=== PATIENT | female | born 1955 | race Caucasian/White ===

== ENCOUNTER 2020-02-10 14:17 | Outpatient (CLI) | payer MEDICARE, SELFPAY ==
--- NOTE | ~2020-02-10 | CT_ITS ---
EXAMINATION: CT lung screening DATE: 02/10/2020 14:39 INDICATION: Z87.891 Personal history of nicotine dependence TECHNIQUE: Computed tomography (CT) of the chest was performed without intravenous contrast. Addition al 3D reconstructions utilizing coronal maximum intensity projection (MIP) were performed. Automated exposure control and iterative reconstruction technique were employed. The dose-length product was 61 .96 mGy-cm. COMPARISON: 10/20/2018 FINDINGS: Severe emphysema. Minimal biapical pleural-parenchymal scarring. There are a few tiny nodules in the bilateral upper lobes the largest measuring 2-3 mm in the left upper lobe without interval change. No pneumonia, pulmonary edema, pleural effusion or pneumothorax. Heart size is normal. Atherosclerotic coronary artery calcification. No pericardial effusion. Thoracic aorta is normal in caliber. No patho logically enlarged thoracic lymphadenopathy. Cholecystectomy clips in the gallbladder fossa. Mild tho racic spondylosis. IMPRESSION: 1. Lung-RADS category 2: Benign appearance or behavior. Continue annual screening with noncontrast lo w-dose chest CT in 12 months. 2. Severe emphysema. Reviewed, dictated and finalized at location A. IMPRESSION: 1. Lung-RADS category 2: Benign appearance or behavior. Continue annual screeni ng with noncontrast low-dose chest CT in 12 months. 2. Severe emphysema.
== END 2020-02-10 14:18 | disposition home or self-care (01) ==
LOC: ANHIMG 14:19
PROVIDERS: PCP Internal Medicine; Visit Provider Nurse Practitioner
DX: Z12.2 Encounter for screening for malignant neoplasm of respiratory organs (principal); Z87.891 Personal history of nicotine dependence; J43.9 Emphysema, unspecified
CPT/HCPCS: G0297

== ENCOUNTER → 2020-08-28 13:58 | Outpatient (CLI) | payer MEDICARE, SELFPAY ==
--- NOTE | ~2020-08-28 | MM_ITS ---
EXAMINATION: MM screening riana BI w kevin HISTORY: Screening mammogram TECHNIQUE: Craniocaudal and mediolateral oblique 3-D tomosynthesis images were obtained and synthetic 2-D images were generated. CAD analysis was submitted and interpreted. COMPARISON: 06/30/2019, 04/16/2018, 04/08/2017 bilateral digital screening mammogram examinations BREAST PARENCHYMAL COMPOSITION: There are scattered areas of fibroglandular density. FINDINGS: There is no evidence of suspicious mass, calcification, or architectural distortion to sugg est malignancy in either breast. There has been no suspicious interval change. IMPRESSION: 1. No mammographic evidence of malignancy. 2. Recommend routine screening mammography in one year. BI-RADS Category 1: Negative Reviewed, dictated and finalized at location A. EW NURSE
== END ==
PROVIDERS: PCP Internal Medicine; Visit Provider Internal Medicine
DX: Z12.31 Encounter for screening mammogram for malignant neoplasm of breast (principal)
CPT/HCPCS: 77063; 77067

== ENCOUNTER → 2021-11-19 13:47 | Outpatient (CLI) | payer MEDICARE, SELFPAY ==
--- NOTE | ~2021-11-19 | MM_ITS ---
EXAMINATION: MM screening [facility] BI w kevin HISTORY: Screening mammogram TECHNIQUE: Craniocaudal and mediolateral oblique 3-D tomosynthesis images were obtained and synthetic 2-D images were generated. CAD analysis was submitted and interpreted. COMPARISON: 08/28/2020, 06/30/2019, 04/16/2018 BREAST PARENCHYMAL COMPOSITION: There are scattered areas of fibroglandular density. FINDINGS: There is no evidence of suspicious mass, calcification, or architectural distortion to sugg est malignancy in either breast. There has been no suspicious interval change. IMPRESSION: 1. No mammographic evidence of malignancy. 2. Recommend routine screening mammography in one year. BI-RADS Category 1: Negative Reviewed, dictated and finalized at location A.
== END ==
PROVIDERS: PCP Internal Medicine; Visit Provider Internal Medicine
DX: Z12.31 Encounter for screening mammogram for malignant neoplasm of breast (principal)
CPT/HCPCS: 77063; 77067

== ENCOUNTER 2022-02-26 10:50 | Outpatient (CLI) | payer MEDICARE, SELFPAY ==
--- NOTE | ~2022-02-26 | US_ITS ---
EXAMINATION: US carotid duplex BI DATE: 02/26/2022 11:40 INDICATION: Carotid bruit TECHNIQUE: Grayscale, color Doppler, and pulsed Doppler images of the cervical carotid arteries were obtained. The degree of vessel stenosis is placed in one of the following categories: normal, <50%, 5 0-69%, >=70% but less than near-occlusion, near-occlusion, or total occlusion. Note that percent sten osis relative to normal distal artery lumen diameter is indirectly measured from velocity measurement s as described by Adrian, et al. Radiology 2003; 229:340-346. COMPARISON: None. FINDINGS: RIGHT: The right common carotid artery (CCA) peak systolic velocity (PSV) is 87 cm/s. The right internal car otid artery (ICA) PSV is 114 cm/s. The right ICA end-diastolic velocity (EDV) is 12 cm/s. The right I CA/CCA PSV ratio is 1.3. Grayscale and color Doppler images yield an estimate of <50% diameter reduct ion from plaque in the ICA. The external carotid artery (ECA) PSV is 129 cm/s. There is antegrade sterling w in the right vertebral artery. LEFT: The left CCA PSV is 88 cm/s. The left ICA PSV is 72 cm/s. The left ICA EDV is 20 cm/s. The left ICA/C CA PSV ratio is 0.8. Grayscale and color Doppler images yield an estimate of <50% diameter reduction from plaque in the ICA. The ECA PSV is 109 cm/s. There is antegrade flow in the left vertebral artery . IMPRESSION: 1. <50% stenosis in the right internal carotid artery. 2. <50% stenosis in the left internal carotid artery. Reviewed, dictated and finalized at location B.
== END 2022-02-26 10:51 | disposition home or self-care (01) ==
PROVIDERS: PCP Internal Medicine; Visit Provider Internal Medicine
DX: R09.89 Other specified symptoms and signs involving the circulatory and respiratory systems (principal); I65.23 Occlusion and stenosis of bilateral carotid arteries
CPT/HCPCS: 93880

== ENCOUNTER 2022-07-20 16:23 | Emergency (ER) | payer MEDICARE, SELFPAY ==
[2022-07-20 16:39] VITALS: BP 117/54; PULSE 85; RESP 16; TEMP 35.9; O2SAT 94
--- NOTE | 2022-07-20 16:52 | ED.URI ---
HPI - URI/Sore Throat General Chief Complaint: Upper Respiratory Infection Stated Complaint: Coughing Time Seen by Provider: 07/20/22 16:52 Source: patient Mode of arrival: ambulatory Limitations: no limitations History of Present Illness HPI Narrative: 66-year-old female with history of COPD presents with complaint of cough, sinus congestion, postnasal drainage for 6 days. Call PCP on 2nd day of symptoms and requested antibiotic he called in. Has been taking cefdinir. Also taking [id number] DayQuil NyQuil cold and flu with little relief of cough. Reports that she has a lot drainage. Has to attend tomorrow and cannot stop coughing. denies shortness of breath and chest pain. Patient is current everyday smoker. All systems reviewed and negative except as noted above. Related Data Home Medications Medication Instructions Recorded Confirmed cefdinir 300 mg capsule 300 mg PO BID 07/20/22 07/20/22 Allergies Allergy/AdvReac Type Severity Reaction Status Date / Time azithromycin Allergy Unknown unsure Verified 07/20/22 16:29 cat dander Allergy Unknown rash Verified 07/20/22 16:29 ketorolac Allergy Unknown Hallucinati Verified 07/20/22 16:29 ng mold Allergy Unknown shortness Verified 07/20/22 16:29 of breath pantoprazole Allergy Unknown Unknown Verified 07/20/22 16:29 Sulfa (Sulfonamide Allergy Unknown Hives Verified 07/20/22 16:29 Antibiotics) Review of Systems Review of Systems: CONSTITUTIONAL: Denies fever, chills, or sweats. EYES: Denies visual changes, redness, or discharge. ENT: Reports rhinorrhea, congestion. Denies sore throat, or otalgia. CARDIOVASCULAR: Denies chest pain, palpitations, or edema. RESPIRATORY: reports cough. Denies dyspnea. GASTROINTESTINAL: Denies abdominal pain, nausea, vomiting, or diarrhea. GENITOURINARY: Denies dysuria or hematuria. SKIN: Denies rash or itching. MUSCULOSKELETAL: Denies back pain, joint pain, or myalgia. NEUROLOGIC: Denies headache, numbness, or weakness. PSYCHIATRIC: Denies anxiety or depression. All other systems reviewed are negative, except as documented in HPI. [facility] Past Medical History Medical History (Updated 07/20/22 @ 17:03 by Mayra Ratliff NP) Impingement syndrome, shoulder, left Family History Family History Sibling Family history of gout Family history of malignant neoplasm Grandparent Family history of tuberculosis Asthma Family history of chronic obstructive pulmonary disease Father Family history of lung cancer Family history of malignant neoplasm Mother Family history of chronic obstructive pulmonary disease Other Family history of congenital heart disease Family history of migraine headaches Social History Social History Smoking packs per day: 1 Smoking cigarettes per day: 20.0 Years smoked: 45 Smoking pack-years: 45.00 Smoking status: Former smoker Tobacco type: cigarettes Second hand tobacco smoke exposure: Yes Smoking end date: 09/08/12 Alcohol intake: former Comments At time of signature, agree with nursing past medical, surgical, social and family history. There is no relevant family history pertinent to the presenting complaint. Exam Narrative: GENERAL: This is a well-nourished, well-developed patient, in no apparent distress. HEAD: normocephalic, atraumatic. EYES: PERRL. Sclera clear/white. Vision is grossly intact. EARS: External ears normal, auditory canals clear and without drainage, TMs normal without perforation. Hearing grossly intact. NOSE: External nose normal with her drainage from both nares, ears erythematous with mild swelling. THROAT: Mucous membranes moist, Mild erythema to posterior pharynx with clear postnasal drainage. NECK: Neck supple, non-tender without lymphadenopathy, masses or thyromegaly. CARDIOVASCULAR: Regular rate and r
== END 2022-07-20 17:14 | disposition home or self-care (01) ==
PROVIDERS: Emergency Provider Nurse Practitioner Family; PCP Internal Medicine
DX: J06.9 Acute upper respiratory infection, unspecified (principal); Z87.891 Personal history of nicotine dependence
CPT/HCPCS: 99213; G0463

== ENCOUNTER 2022-08-28 10:39 | Outpatient (CLI) | payer MEDICARE, SELFPAY ==
--- NOTE | ~2022-08-28 | CT_ITS ---
EXAMINATION: CT lung screening DATE: 08/28/2022 11:12 INDICATION: Personal history nicotine dependence, prior smoker with 45 pack year history TECHNIQUE: Computed tomography (CT) of the chest was performed without intravenous contrast. The dose -length product (DLP) was 65.10 mGy-cm. Automated exposure control and iterative reconstruction techn [employer] were employed. COMPARISON: 02/10/2020 FINDINGS: There is severe emphysema. There are small bilateral waxing and waning pulmonary nodules. A 2 mm nodule of the right upper lobe is not definitely identified on the comparison examination and t he previously described small left upper lobe nodule is no longer evident. The lungs are free of foca l airspace opacities. No pleural effusion or pneumothorax. No pathologically enlarged thoracic lymph nodes are identified. The heart size is normal. There is enlargement of the main and central pulmonar y arteries, consistent with pulmonary hypertension. There is calcified atherosclerosis with moderate stenosis of the proximal abdominal aorta. There is mild thoracic spondylosis. IMPRESSION: 1. Lung-RADS category 2: Benign appearance or behavior. Continue annual screening with noncontrast lo w-dose chest CT in 12 months. Reviewed, dictated and finalized at location F. ORK CONTRACTOR IMPRESSION: 1. Lung-RADS category 2: Benign appearance or behavior. Continue annual screeni ng with noncontrast low-dose chest CT in 12 months.
--- NOTE | ~2022-08-28 | XR_ITS ---
Lumbosacral Spine: AP and lateral views Clinical History: Pain Findings: The normal lordotic curve is maintained. The vertebral bodies and posterior elements are i ntact. There is facet joint degenerative change at L4-L5 and L5-S1. There is mild degenerative disc c hange at these levels. The sacroiliac joints are normally outlined. Impression: Degenerative changes at L4-L5 and L5-S1, as detailed above. Reviewed, dictated and finalized at location . TE[employer] Impression: Degenerative changes at L4-L5 and L5-S1, as detailed above.
== END 2022-08-28 10:40 | disposition home or self-care (01) ==
PROVIDERS: PCP Internal Medicine; Visit Provider Nurse Practitioner
DX: Z12.2 Encounter for screening for malignant neoplasm of respiratory organs (principal); G89.29 Other chronic pain; M54.50 Low back pain, unspecified; Z87.891 Personal history of nicotine dependence
CPT/HCPCS: 71271; 72100

== ENCOUNTER → 2023-02-07 16:04 | Outpatient (CLI) | payer MEDICARE, SELFPAY ==
--- NOTE | ~2023-02-07 | MM_ITS ---
EXAMINATION: MM screening riana BI w kevin HISTORY: Screening mammogram TECHNIQUE: Craniocaudal and mediolateral oblique 3-D tomosynthesis images were obtained and synthetic 2-D images were generated. CAD analysis was submitted and interpreted. COMPARISON: 11/19/2021, 08/28/2020, bilateral screening mammogram examinations BREAST PARENCHYMAL COMPOSITION: There are scattered areas of fibroglandular density. FINDINGS: There is no evidence of suspicious mass, calcification, or architectural distortion to sugg est malignancy in either breast. There has been no suspicious interval change. IMPRESSION: 1. No mammographic evidence of malignancy. 2. Recommend routine screening mammography in one year. BI-RADS Category 1: Negative Reviewed, dictated and finalized at location A.
== END ==
PROVIDERS: PCP Family Medicine; Visit Provider Family Medicine
DX: Z12.31 Encounter for screening mammogram for malignant neoplasm of breast (principal)
CPT/HCPCS: 77063; 77067

== ENCOUNTER → 2023-05-06 10:46 | Outpatient (CLI) | payer MEDICARE, SELFPAY ==
--- NOTE | ~2023-05-06 | DEXA_ITS ---
Bone Density Report Name: URBAN JANSEN Age: 67 Sex: Female Ethnicity: White Date of : 1955 Indication: postmenopausal; screening for osteoporosis; height loss; asthma or emphysema; hysterectomy; Referring Provider: HENRRY LANCASTER Study: Bone densitometry was performed. Exam Date: May 06, 2023 Accession number: [id number] Bone Density: Region BMD T-score Z-score Classification AP Spine (L1-L4) 0.942 -1.0 1.1 Normal Femoral Neck (Left) 0.738 -1.0 0.8 Normal Total Hip (Left) 0.898 -0.4 1.1 Normal Femoral Neck (Right) 0.724 -1.1 0.7 Osteopenia Total Hip (Right) 0.894 -0.4 1.1 Normal Total Hip Mean 0.896 -0.4 1.1 Normal World Health Organization criteria for BMD impression classify patients as: Normal (T-score at or above -1.0), Osteopenia (T-score between -1.0 and -2.5), or Osteoporosis (T-score at or below -2.5). 10-year Fracture Risk(1): Major Osteoporotic Fracture 9.0% Hip Fracture 1.6% Reported Risk Factors: [place] (), Neck BMD=0.724, BMI=27.4, smoking (1) FRAX(R) Version 3.08. Fracture probability calculated for an untreated patient. Fracture probability may be lower if the patient has received treatment. Previous Exams: Region Exam Age BMD T-score BMD Change BMD Change Date g/cm2 vs Baseline vs Previous AP Spine(L1-L4) 05/06/2023 67 0.942 -1.0 -0.065* -0.065* 04/08/2017 61 1.007 -0.4 Total Hip(Left) 05/06/2023 67 0.898 -0.4 -0.035* -0.035* 04/08/2017 61 0.933 -0.1 Total Hip(Right) 05/06/2023 67 0.894 -0.4 -0.030* -0.030* 04/08/2017 61 0.923 -0.2 *Denotes significance at 95% confidence level, LSC for AP Spine = 0.022 g/cm2, LSC for Total Hip = 0.027 g/cm2 Clinical Information Provided by Patient: Smokes Has the following medical conditions: Asthma or Emphysema, Hysterectomy Patient maximum height was 63 Menopause Age: 41 No regular weight bearing exercise Drinks caffeinated beverages Onset of menses at age 8 Number of children 2 Impression: The patient has low bone mass, based on the Right Femoral Neck T-score. The patient has an estimated ten-year risk of hip fracture of 1.6% and an estimated ten-year risk of major fracture of 9%, based on the WHO FRAX algorithm. The patient has risk factors, including: smoking. The BMD for the AP Spine(L1-L4) decreased, changing by -0.065 since the last DXA exam. The BMD for the Total Hip(Left) de
== END ==
PROVIDERS: PCP Nurse Practitioner Family; Visit Provider Nurse Practitioner Family
DX: Z13.820 Encounter for screening for osteoporosis (principal); M85.88 Other specified disorders of bone density and structure, other site
CPT/HCPCS: 77080

== ENCOUNTER 2023-07-28 12:45 | Outpatient (CLI) | payer MEDICARE, SELFPAY ==
--- NOTE | ~2023-07-28 | US_ITS ---
EXAMINATION:US venous doppler LE BI INDICATION:Bilateral leg edema TECHNIQUE: Multiple grayscale, color flow and Doppler images of the right and left lower extremity de ep venous systems were obtained and reviewed. COMPARISON:No prior studies for comparison. FINDINGS: The common femoral, superficial femoral and popliteal veins demonstrate normal respiratory variation, augmentation and compressibility. Color flow is also seen within the posterior tibial, pe roneal, greater saphenous and profunda veins. IMPRESSION: 1: No lower extremity deep venous thrombosis. Reviewed, dictated and finalized at location B. S CONTRACTOR
== END 2023-07-28 12:46 | disposition home or self-care (01) ==
PROVIDERS: PCP Nurse Practitioner Family; Visit Provider Nurse Practitioner Family
DX: I87.2 Venous insufficiency (chronic) (peripheral) (principal); R60.0 Localized edema
CPT/HCPCS: 93970

== ENCOUNTER 2023-08-09 12:36 | Outpatient (CLI) | payer MEDICARE, SELFPAY ==
--- NOTE | 2023-08-09 12:56 | ECHO_ITS ---
Patient Info Name: Selena Ramos Age: 67 years : 1955 Gender: Female Ht: 60 in Wt: 135 lbs BSA: 1.63 m2 HR: 104 bpm BP: 130 / 68 mmHg Heart Rhythm: Sinus Rhythm Technical Quality: Good Exam Date: 08/09/2023 1:06 PM Exam Location: Echo Lab Patient Status: Outpatient Admit Date: 08/09/2023 Staff Ordering Physician: Angeline Steen APRN Die Drawing Checker: Maxi Moise RDCS Attending Provider: Angeline Steen APRN Exam Type: CA echo doppler color flow Study Info Indications - abnormal finding blood chemistery Complete two-dimensional, color flow and Doppler transthoracic echocardiogram is performed. Summary 1. Complete two-dimensional, color flow and Doppler transthoracic echocardiogram is performed. 2. Left ventricular chamber dimension is normal. 3. Left ventricular systolic function is normal, estimated at 60-65%. 4. There is mildly increased left ventricular wall thickness. 5. The left ventricular diastolic function is grade I diastolic dysfunction. 6. There is trace mitral valve regurgitation. 7. There is trace tricuspid valve regurgitation. 8. No pulmonary hypertension, estimated pulmonary arterial systolic pressure is 15 mmHg. 9. There is mild aortic valve sclerosis. 10. There is no aortic valve regurgitation. Left Ventricle Left ventricular chamber dimension is normal. Left ventricular systolic function is normal, estimated at 60-65%. There is mildly increased left ventricular wall thickness. The left ventricular diastolic function is grade I diastolic dysfunction. Right Ventricle Right ventricular chamber dimension is normal. Right ventricular systolic function is normal. Left Atria Left atrial chamber dimension is normal. Right Atria Right atrial chamber dimension is normal. Aortic Valve The aortic valve is probable trileaflet. There is mild aortic valve sclerosis. There is no aortic valve stenosis. There is no aortic valve regurgitation. Pulmonic Valve The pulmonic valve is not well visualized. There is mild pulmonic regurgitation. Mitral Valve The mitral valve has normal leaflets. There is trace mitral valve regurgitation. The mitral valve annulus is mildly calcified. Tricuspid Valve The tricuspid valve leaflets are normal. There is trace tricuspid valve regurgitation. No pulmonary hypertension, estimated pulmonary arterial systolic pressure is 15 mmHg. Pericardium/Pleural The pericardium appears normal. There is small pericardial effusion. Inferior Vena Cava Normal inferior vena cava with >50% collapse upon inspiration consistent with normal right atrial pressure, 5 mmHg. Aorta The aortic root size at the sinus of Valsalva is normal. There is mild aortic atherosclerosis. Left Ventricular Outflow Tract Name Value Normal LVOT 2D LVOT Diameter 1.8 cm LVOT Doppler LVOT Peak Gradient 3 mmHg LVOT Mean Gradient 2 mmHg LVOT VTI 22 cm LVOT VTI/AV VTI Ratio 0.9 LVOT Stroke Volume 54 ml LVOT CO 4.1 l/min LVOT CI 2.5 l/min/m2 Pulmonic V
== END 2023-08-09 12:37 | disposition home or self-care (01) ==
PROVIDERS: PCP Nurse Practitioner Family; Visit Provider Nurse Practitioner Family
DX: R60.0 Localized edema (principal); R79.89 Other specified abnormal findings of blood chemistry
CPT/HCPCS: 93306

== ENCOUNTER 2023-11-20 11:41 | Outpatient (CLI) | payer MEDICARE, SELFPAY ==
--- NOTE | ~2023-11-20 | CT_ITS ---
CT Scan of the Chest without Contrast: Clinical Indication: Lung cancer screening, personal history of nicotine dependence Technique: Contiguous sections were acquired throughout the chest without intravenous contrast. Dose reduction technique was used on this scan by utilizing automated exposure control and iterative recon struction technique. The dose-length product (DLP) was 51.22 mGy-cm. COMPARISON: 08/28/2022 Findings: There is no evidence of any significant mediastinal, hilar or axillary lymphadenopathy. There are ext ensive atherosclerotic calcifications of the aorta. There is no evidence of pleural or pericardial effusion. The lungs are clear. No pulmonary nodules or infiltrates are noted. Moderate to advanced emphysema pr esent. Images through the upper abdomen reveal severe atherosclerotic calcification at the upper abdominal a ravi and iliac aortic hiatus, with possible significant aortic stenosis in this region, stable from p rior exam.. Impression: Lung RADS 1: Negative. 12 month follow-up screening CT advised. Moderate to advanced emphysema. Reviewed, dictated and finalized at location . Impression: Lung RADS 1: Negative. 12 month follow-up screening CT advised. Moderate to advanced emphysema.
== END 2023-11-20 11:42 ==
PROVIDERS: PCP Nurse Practitioner Family; Visit Provider Nurse Practitioner Family
DX: Z12.2 Encounter for screening for malignant neoplasm of respiratory organs (principal); Z87.891 Personal history of nicotine dependence; J43.9 Emphysema, unspecified
CPT/HCPCS: 71271

== ENCOUNTER 2023-12-30 18:30 | Inpatient (IN) | payer MEDICARE, SELFPAY ==
[2023-12-30] VITALS (26 sets, daily range): BP systolic 141–175; BP diastolic 56–142; PULSE 98–123; RESP 15–31; TEMP 35.8–36.7; O2SAT 77–100; BMI 25.2
--- NOTE | ~2023-12-30 | CT_ITS ---
Clinical Indication: Hypoxia, positive d-dimer CT Scan of the Chest with Contrast: Technique: Contiguous sections were acquired throughout the chest after intravenous administration of 100 cc of Omnipaque 350. Dose reduction technique was used on this scan by utilizing automated expos ure control and iterative reconstruction technique. The dose-length product (DLP) was 183.06 mGy-cm. COMPARISON: 11/20/2023 Findings: There is no evidence of any significant mediastinal, hilar or axillary lymphadenopathy. There is no f illing defect in the pulmonary arterial tree to suggest pulmonary embolus. There is no evidence of ao rtic dissection or aneurysm. There is no evidence of pleural or pericardial effusion. Moderate emphysema present. There is patchy consolidation at the right lower lobe. There is focal con solidation peripherally left upper lobe. There is additional focal airspace consolidation in the medi al left upper lobe in the infrahilar region. Images through the upper abdomen reveal no abnormalities . Impression: No evidence of pulmonary embolus, aortic dissection, or aortic aneurysm. New areas of patchy consolidation the right lower lobe and left upper lobe, as detailed above, compat ible with pneumonia. Moderate emphysema. Reviewed, dictated and finalized at location . Impression: No evidence of pulmonary embolus, aortic dissection, or aortic aneurysm. New areas of patchy consolidation the right lower lobe and left upper lobe, as detailed above, compatible with pneumonia. Moderate emphysema.
--- NOTE | ~2023-12-30 | XR_ITS ---
EXAMINATION: XR chest 1V portable Exam Date/Time: 12/30/2023 18:55 CDT HISTORY: shortness of breath Comparison: 08/05/2016, report only. RESULT: Lines, tubes, and devices: None. Lungs and pleura: Senescent/emphysematous change. Mild diffuse reticular opacities. Mild streaky rig ht basilar opacities Cardiomediastinal silhouette: Stable. Other: No acute osseous or upper abdominal finding. IMPRESSION: Subsegmental right basilar atelectasis/consolidation. Mild interstitial edema. Reviewed, dictated and finalized at location K.
--- NOTE | ~2023-12-30 | XR_ITS ---
EXAMINATION: XR chest 2V DATE: 01/02/2024 10:56 INDICATION: Pneumonia. TECHNIQUE: Frontal and lateral views of the chest were obtained. COMPARISON: Chest view 12/30/2023, chest CT 12/31/2023 FINDINGS: There are lucencies in the lungs, consistent with emphysema. There are airspace opacities i n the right lower lobe. No pleural effusion or pneumothorax. The heart size is normal. Surgical clips in the right upper quadrant are likely from cholecystectomy. IMPRESSION: 1. Several airspace opacities in right lower lobe, consistent with pneumonia. 2. Emphysema. Reviewed, dictated and finalized at location A.
--- NOTE | 2023-12-30 18:40 | ECG_ITS ---
SEE SCANNED COPY FOR CONFIRMED REPORT MTDD
[2023-12-30 19:02] LABS: Basophils Absolute Auto 0.1 K/mm3 (0.0-0.1); Basophils Percent Auto 0.4 % (0.2-1.2); Hematocrit 51.5 % (37.0-47.0); Immature Granulocyte Absolute 0.29 K/mm3 (0.00-0.031); Immature Granulocyte Percent A 1.2 % (0-0.5); Lymphocytes Absolute Auto 1.27 K/mm3 (0.9-3.2); Lymphocytes Percent Auto 5.2 % (18.3-44.2); Mean Corpuscular Hemoglobin 31.4 pg (26-34); Mean Platelet Volume 9.8 fl (7.4-10.4); Monocytes Absolute Auto 1.6 K/mm3 (0.1-0.6); Monocytes Percent Auto 6.3 % (2.6-8.5); Neutrophils Absolute Auto 21.4 K/mm3 (1.3-6.7); Neutrophils Percent Auto 86.9 % (45.5-73.1); Platelet Count Result 359 k/mm3 (150-375); Red Blood Count 5.42 M/mm3 (4.2-5.4); Red Cell Distribution Width 15.5 % (11.5-14.5); White Blood Count 24.6 K/mm3 (4.5-10.0)
[2023-12-30 19:19] LABS: Alanine Aminotransferase 57 U/L (6-35); Albumin Level 4.3 g/dL (3.5-5.1); Alkaline Phosphatase 153 U/L (38-126); Anion Gap 6 mmol/L (4-12); Aspartate Amino Transferase 36 U/L (14-36); Bilirubin,Total 0.8 mg/dL (0.2-1.3); Blood Urea Nitrogen 14 mg/dL (7-17); Carbon Dioxide 31 mmol/L (22-30); Chloride 98 mmol/L (98-107); Estimated CRCL calculation 63 ml/min; Estimated Glomerular Filt Rate > 60; Glucose 153 mg/dL (65-110); Sodium 135 mmol/L (137-145)
--- NOTE | 2023-12-30 19:50 | ED.SOB ---
HPI - SOB/Dyspnea General Chief Complaint: Shortness of Breath/Dyspnea Stated Complaint: sob Time Seen by Provider: 12/30/23 19:49 History of Present Illness HPI Narrative: Patient is a 68-year-old female with history of anxiety, depression, COPD, GERD, DM, HLD here with shortness of breath and panic attack . Patient notes that about 1 week ago she started experiencing some facial pain over her sinuses which she has been told in the past is a sign of a sinus infection. She contacted her primary care provider the same day and had a virtual visit, they started her on Augmentin. She notes she had significant diarrhea throughout this antibiotic course. She did have a mild cough during the same period of time as well as some lower extremity swelling which her primary care provider told her was likely due to her illness and COPD. She has had worsening shortness of breath and panic attacks over the last week of her illness noting episodes of feeling as though she can not catch her breath when she gets up to urinate several times overnight due to her diuretic use. She denies prior history of PE or DVT. She denies fever or chills. She notes that today she began having a panic attach which she describes as feeling tingling in her arms and legs, feeling like her blood is on fire, followed by significant shortness of breath. Her at bedside notes she was breathing very quickly and shallowly during this period. On EMS arrival she was reportedly saturating in the 80s and they had decreased breath sounds on the left. They started a duoneb en route. Patient denies recent steroid use, requests to not be started on steroids or receive any additional breathing treatments because of how it makes her anxiety. Of note, she has no history of CHF but has had some leg swelling this week, she was started on diuretics by her primary care doctor for the swelling. Related Data Home Medications Medication Instructions Recorded Confirmed cetirizine 10 mg tablet (Zyrtec) 10 mg PO DAILY 02/26/23 12/15/23 coenzyme Q10 100 mg capsule 100 mg PO DAILY 02/26/23 12/15/23 (CoQ-10) mecobalamin (vitamin B12) 500 mcg 1,000 mcg PO DAILY 09/18/23 12/15/23 chewable tablet Allergies Allergy/AdvReac Type Severity Reaction Status Date / Time azithromycin Allergy Unknown unsure Verified 12/30/23 18:49 cat dander Allergy Unknown rash Verified 12/30/23 18:49 ketorolac Allergy Unknown Hallucinati Verified 12/30/23 18:49 ng mold Allergy Unknown shortness Verified 12/30/23 18:49 of breath pantoprazole Allergy Unknown Unknown Verified 12/30/23 18:49 Sulfa (Sulfonamide Allergy Unknown Hives Verified 12/30/23 18:49 Antibiotics) Review of Systems Review of Systems: All systems reviewed & are unremarkable except as noted in HPI and below PMFSH Past Medical History Medical History (Updated 12/30/23 @ 21:50 by Noemí Salazar MD) Chronic low back pain Depression Emphysema/COPD Essential (primary) hypertension Gastroesophageal reflux disease Hearing Loss Impingement syndrome, shoulder, left Mixed hyperlipidemia Primary osteoarthritis involving multiple joints Type 2 diabetes mellitus without complication, without long-term current use of insulin Family History Family History Sibling Family history of gout Family history of malignant neoplasm Grandparent Family history of tuberculosis Asthma Family history of chronic obstructive pulmonary disease Father Family history of lung cancer Family history of malignant neoplasm Mother Family history of chronic obstructive pulmonary disease Other Family history of congenital heart disease Family history of migraine headaches Social History Social History Smoking packs per day: 1 Smoking cigarettes per day: 20.0 Years smoked: 45 Smoking pack-years: 45.00 Smoking status: Former
[2023-12-30 20:51] LABS: D Dimer 0.52 ug/mL (<0.48)
[2023-12-30 20:54] LABS: CRP 7.5 mg/dL (<1.0)
[2023-12-30 20:59] LABS: Lactic Acid Reflex 1.2 mmol/L (0.7-2.0)
[2023-12-30 21:05] LABS: NT Pro B Type Natriuretic Pept 3730 pg/mL (19.9-100); Troponin I 0.017 ng/mL (0.000-0.034)
--- NOTE | 2023-12-30 21:07 | PC.NURSE ---
Pharmacy contacted - doxycycline grayed out in both pyxis.
--- NOTE | 2023-12-30 21:18 | PM.IMHP ---
H&P: HPI History of Present Illness Date/Time: 12/30/23 21:18 Chief Complaint: sob Narrative: This is a 68-year-old female with past medical history significant for COPD/emphysema, patient is a current everyday smoker of half a pack of cigarettes daily home GERD, panic attacks, hypertension. patient completed course of antibiotics in the outpatient setting for pneumonia however however presents to the emergency room due to worsening shortness of breath, cough productive of yellowish sputum, night sweats, chills, fevers, poor appetite, generalized malaise, generalized weakness, wheezing. in emergency room patient was found to have an oxygen saturation of 88% and placed on supplemental oxygen by nasal cannula. Preliminary workup was significant for chest x-ray was reported as: EXAMINATION:? XR chest 1V portable Exam Date/Time:? 12/30/2023 18:55 CDT HISTORY: shortness of breath ? Comparison:? 08/05/2016, report only. RESULT: Lines, tubes, and devices:? None. Lungs and pleura:? Senescent/emphysematous change. Mild diffuse reticular opacities. Mild streaky right basilar opacities Cardiomediastinal silhouette:? Stable. Other:? No acute osseous or upper abdominal finding. ? IMPRESSION: Subsegmental right basilar atelectasis/consolidation. Mild interstitial edema. [facility] Past Medical History Medical History (Updated 12/30/23 @ 21:50 by Noemí Salazar MD) Chronic low back pain Depression Emphysema/COPD Essential (primary) hypertension Gastroesophageal reflux disease Hearing Loss Impingement syndrome, shoulder, left Mixed hyperlipidemia Primary osteoarthritis involving multiple joints Type 2 diabetes mellitus without complication, without long-term current use of insulin Family History Family History Sibling Family history of gout Family history of malignant neoplasm Grandparent Family history of tuberculosis Asthma Family history of chronic obstructive pulmonary disease Father Family history of lung cancer Family history of malignant neoplasm Mother Family history of chronic obstructive pulmonary disease Other Family history of congenital heart disease Family history of migraine headaches Social History Social History Smoking packs per day: 1 Smoking cigarettes per day: 20.0 Years smoked: 45 Smoking pack-years: 45.00 Smoking status: Current every day smoker Tobacco type: cigarettes Second hand tobacco smoke exposure: Yes Smoking end date: 09/08/12 Alcohol intake: never Alcohol use details: rarely Substance use: never Substance use type: does not use Do You Feel Safe in your Home?: Yes Lack of Transportation: No Lack of Food: Never True Current Housing: I Have Housing Concerned About Future Housing: No Difficulty Paying Gas/Electric Bills: No Difficulty Paying for Meds: No Currently Unemployed: No Education: Trade/Vocational Certificate Difficulty w/ Childcare or Family Care: No Spiritual care concerns: No Meds Home Medications and Allergies Home Medications Medication Instructions Recorded Confirmed Type albuterol sulfate 90 mcg/actuation 2 inh inhalation Q4-6H PRN 02/26/23 12/30/23 Rx breath activated powder inhaler shortness of breath #1 ea coenzyme Q10 100 mg capsule 100 mg PO DAILY 02/26/23 12/30/23 History (CoQ-10) triamcinolone acetonide 55 mcg 2 spray intranasal DAILY #16.9 mL 02/26/23 12/30/23 Rx nasal spray aerosol (Nasacort) mecobalamin (vitamin B12) 500 mcg 1,000 mcg PO DAILY 09/18/23 12/30/23 History chewable tablet buspirone 10 mg tablet 10 mg PO BID #60 tabs 12/23/23 12/30/23 Rx furosemide 40 mg tablet 40 mg PO BID #60 tabs 12/23/23 12/30/23 Rx potassium chloride 20 mEq 20 meq PO BID #60 tabs 12/23/23 12/30/23 Rx tablet,extended release fluticasone fur. 200 mcg-umeclid 1 inh inhalation DAILY #
[2023-12-30 21:19] LABS: Influenza A QL RT-PCR Negative (Negative); Influenza B QL RT-PCR Negative (Negative); RSV RNA, RT-PCR Negative (Negative); SARS-CoV-2 RNA PCR Negative (Negative)
[2023-12-30] MEDS: LORazepam INJ (*CRX) 2 MG/ML VIAL 1 MG IV PUSH (21:38)
[2023-12-30] MEDS: diphenhydrAMINE HCl INJ 50 MG/ML VIAL 25 MG IV PUSH (21:38)
[2023-12-30] MEDS: DOXYCYCLINE 100 MG/NS 100 ML 100 MG/100 ML BAG IVPB (21:39)
--- NOTE | 2023-12-30 21:50 | PC.NURSE ---
Pt taken off oxygen to be wheeled to restroom. Pt desated to 85% on room air. Pt returned to Stretcher and placed on 3LNC
--- NOTE | 2023-12-30 22:48 | ADMGEN ---
This patient, Selena Ramos, was admitted to 2 Medical Room 242-. Patient/family oriented to hospital policies and general routines including ID bracelet, bed and alarms, visiting hours, pain management, procedures, bathroom and other care routines, personal items, smoking policy, room service/diet, and visiting hours. Information on how to activate the Rapid Response Team has been discussed. Patient/Family are encouraged to report perceived risks to care and to ask questions if they do not understand what they are told or what they should do.
[2023-12-30] MEDS: ALPRAZolam (*CRX) 0.5 MG TABLET PO (23:54)
[2023-12-31] VITALS (12 sets, daily range): BP systolic 140–155; BP diastolic 57–58; PULSE 70–115; RESP 17–22; TEMP 35.9–36.4; O2SAT 92–95; BMI 25.2
[2023-12-31 04:05] LABS: Troponin I 0.033 ng/mL (0.000-0.034)
[2023-12-31] MEDS: ALPRAZolam (*CRX) 0.5 MG TABLET PO ×3 (06:28→21:46)
[2023-12-31] MEDS: FLUTICASONE/UMECLIDIN/VILANTER 200-62.5-25 MCG ELLIPTA 1 PUFF INHALATION (07:32)
[2023-12-31 08:10] LABS: Basophils Absolute Auto 0.1 K/mm3 (0.0-0.1); Basophils Percent Auto 0.3 % (0.2-1.2); Hematocrit 47.2 % (37.0-47.0); Hemoglobin 15.5 g/dL (12.0-15.0); Immature Granulocyte Absolute 0.31 K/mm3 (0.00-0.031); Immature Granulocyte Percent A 1.1 % (0-0.5); Lymphocytes Absolute Auto 1.75 K/mm3 (0.9-3.2); Lymphocytes Percent Auto 6.4 % (18.3-44.2); Mean Corpuscular HGB Conc 32.8 g/dl (32-36); Mean Corpuscular Hemoglobin 31.5 pg (26-34); Mean Corpuscular Volume 95.9 fl (80-100); Mean Platelet Volume 10.6 fl (7.4-10.4); Monocytes Absolute Auto 2.3 K/mm3 (0.1-0.6); Monocytes Percent Auto 8.2 % (2.6-8.5); Neutrophils Absolute Auto 23.2 K/mm3 (1.3-6.7); Platelet Count Result 352 k/mm3 (150-375); Red Blood Count 4.92 M/mm3 (4.2-5.4); Red Cell Distribution Width 15.5 % (11.5-14.5); White Blood Count 27.5 K/mm3 (4.5-10.0)
[2023-12-31 08:26] LABS: Glucose Point of Care 149 mg/dl (65-105)
[2023-12-31 08:46] LABS: Procalcitonin 0.1 ng/mL
[2023-12-31 09:23] LABS: Albumin Level 3.7 g/dL (3.5-5.1); Anion Gap 4 mmol/L (4-12); Blood Urea Nitrogen 12 mg/dL (7-17); Calcium 9.2 mg/dL (8.4-10.2); Carbon Dioxide 28 mmol/L (22-30); Chloride 100 mmol/L (98-107); Estimated CRCL calculation 63 ml/min; Estimated Glomerular Filt Rate > 60; Glucose 131 mg/dL (65-110); Magnesium 1.9 mg/dL (1.6-2.3); Phosphorus 3.8 mg/dL (2.5-4.5); Potassium 4.4 mmol/L (3.4-5.0); Sodium 132 mmol/L (137-145)
[2023-12-31] MEDS: busPIRone HCL 10 MG TABLET PO ×2 (09:32→17:07)
[2023-12-31] MEDS: DOXYCYCLINE HYCLATE 100 MG TABLET PO ×2 (09:32→21:46)
[2023-12-31] MEDS: cefTRIAXone 2 GM/NS 100 ML 2 GM/100 ML BAG IVPB (09:32)
[2023-12-31] MEDS: ATORVASTATIN 20 MG TABLET PO (09:32)
[2023-12-31] MEDS: CYANOCOBALAMIN 1,000 MCG TABLET 1000 MCG PO (09:32)
[2023-12-31] MEDS: LORATADINE 10 MG TABLET PO (09:33)
[2023-12-31] MEDS: lisinopriL 5 MG TABLET PO (09:33)
[2023-12-31] MEDS: FUROSEMIDE 40 MG TABLET PO ×2 (09:33→17:07)
[2023-12-31] MEDS: FLUTICASONE PROPIONATE 0.05% NA SPR 16 GM BTL (*BKC) 2 SPRAY NASAL (09:33)
[2023-12-31] MEDS: POTASSIUM CHLORIDE 20 MEQ ER TABLET PO ×2 (09:33→17:07)
[2023-12-31 09:47] LABS: CRP 16.6 mg/dL (<1.0)
[2023-12-31 12:39] LABS: Glucose Point of Care 147 mg/dl (65-105)
[2023-12-31] MEDS: CEFEPIME 2 GM/NS 50 ML 2 GM/50 ML BAG IVPB ×2 (14:06→21:46)
[2023-12-31 15:23] LABS: MRSA (PCR) NOT DETECTED (NOT DETECTE)
--- NOTE | 2023-12-31 15:40 | PM.IMPN ---
Progress Note: A&P Assessment and Plan (1) Community acquired pneumonia: Code(s): J18.9 - Pneumonia, unspecified organism Status: Acute Assessment and Plan: Suspected on chest x-ray, confirmed by CTA, pneumonia right lower lobe and left upper lobe. Antibiotics changed to cefepime and doxycycline. MRSA nares not detected. Flu COVID RSV were negative. Testing ordered for chlamydia pneumonia a, Legionella and pneumococcal antigen. Patient unable to produce sputum sample for culture (2) Acute hypoxic respiratory failure: Code(s): J96.01 - Acute respiratory failure with hypoxia Status: Acute Assessment and Plan: History of mild COPD no prior oxygen use but requiring 3 liters/minute since admission. Increase oxygen and felt to be related to pneumonia. CTA obtained to rule out PE, confirms pneumonia and no PE on imaging. (3) Anxiety: Code(s): F41.9 - Anxiety disorder, unspecified Status: Acute Assessment and Plan: Patient reports up to 10 panic attack per day over last 3 weeks since she started having sinusitis symptoms. (4) Gastroesophageal reflux disease: Code(s): K21.9 - Gastro-esophageal reflux disease without esophagitis Status: Chronic Assessment and Plan: Chronic, continue home medication (5) Chronic low back pain: Code(s): M54.50 - Low back pain, unspecified; G89.29 - Other chronic pain Status: Chronic Assessment and Plan: Chronic, continue home medication (6) Nicotine abuse: Code(s): Z72.0 - Tobacco use Status: Acute Assessment and Plan: Smoking cessation discussed Time Spent With Patient Time with patient: Greater than 35 minutes Subjective Date/time seen: 12/31/23 15:40 Interval history: This is a 68-year-old female patient admitted to the hospital with concern for pneumonia. She reports 3 weeks of sinusitis symptoms not feeling well in frequent anxiety attacks upwards of 10 times per day over the last 3 weeks. Patient has a history of COPD but no prior COPD hospitalizations no use of home oxygen. She required oxygen use at 3 liters/minute at some point had oxygen saturation as low as 77% on room air. Findings of questionable pneumonia on chest x-ray. White blood cell count significantly elevated to 27.5 today. CRP is also rising but procalcitonin is normal. We will escalate antibiotics to cefepime instead of ceftriaxone for additional Pseudomonas coverage. Ordered pneumococcal and Legionella antigen testing as well as mycoplasma and Chlamydia pneumoniae a PCR testing. Patient unable to produce sputum for sputum culture. Due to new oxygen use and only questionable findings of pneumonia, D-dimer noted to be minimally elevated we will proceed with CTA to rule out PE as cause patient's symptoms. CTA no sign of pulmonary embolus but does show patchy consolidation right lower lobe and left upper lobe compatible with pneumonia. Review of Systems Review of Systems: All systems reviewed & are unremarkable except as noted in HPI and below Exam Narrative: patient is sitting in bed Const: General: cooperative, comfortable, no acute distress, well developed, alert, awake, ill appearing acutely and average body habitus Nutritional Appearance: average body habitus Orientation/consciousness: patient oriented x3 HENMT: Head: normal to inspection, normocephalic and atraumatic Ears: hearing grossly normal bilaterally Face/Nose/Sinus: normal facial exam Face and sinus: normal facial exam Eyes: General: appearance normal, both eyes and all related structures Pupils: Equal, round and reactive pupils present EOM: EOMs intact bilaterally Neck: Neck: full ROM, no lymphadenopathy and no JVD Thyroid: thyroid normal Lymphatic: no lymphadenopathy noted Resp: Effort & Inspection: normal respiratory effort, able to speak in complete sentences, Actively coughing and tachypneic Auscultation: crackles (Worse on the
[2023-12-31 17:39] LABS: Glucose Point of Care 135 mg/dl (65-105)
[2023-12-31] MEDS: CITALOPRAM HYDROBROMIDE 20 MG TABLET PO (21:46)
[2023-12-31 22:24] LABS: Glucose Point of Care 137 mg/dl (65-105)
[2024-01-01] VITALS (16 sets, daily range): BP systolic 122–151; BP diastolic 40–56; PULSE 84–99; RESP 17–20; TEMP 36.1–36.8; O2SAT 91–95
[2024-01-01 04:49] LABS: Basophils Absolute Auto 0.1 K/mm3 (0.0-0.1); Basophils Percent Auto 0.3 % (0.2-1.2); Eosinophils Percent Auto 0.2 % (0-4.4); Hematocrit 43.7 % (37.0-47.0); Hemoglobin 14.5 g/dL (12.0-15.0); Immature Granulocyte Absolute 0.12 K/mm3 (0.00-0.031); Immature Granulocyte Percent A 0.7 % (0-0.5); Lymphocytes Absolute Auto 2.25 K/mm3 (0.9-3.2); Lymphocytes Percent Auto 12.4 % (18.3-44.2); Mean Corpuscular HGB Conc 33.2 g/dl (32-36); Mean Corpuscular Hemoglobin 31.2 pg (26-34); Mean Platelet Volume 9.9 fl (7.4-10.4); Monocytes Absolute Auto 1.7 K/mm3 (0.1-0.6); Monocytes Percent Auto 9.5 % (2.6-8.5); Neutrophils Percent Auto 76.9 % (45.5-73.1); Platelet Count Result 343 k/mm3 (150-375); Red Blood Count 4.65 M/mm3 (4.2-5.4); White Blood Count 18.2 K/mm3 (4.5-10.0)
[2024-01-01 05:14] LABS: Alanine Aminotransferase 41 U/L (6-35); Albumin Level 3.4 g/dL (3.5-5.1); Alkaline Phosphatase 121 U/L (38-126); Anion Gap 5 mmol/L (4-12); Aspartate Amino Transferase 29 U/L (14-36); Bilirubin,Total 0.9 mg/dL (0.2-1.3); Blood Urea Nitrogen 15 mg/dL (7-17); Carbon Dioxide 29 mmol/L (22-30); Chloride 98 mmol/L (98-107); Estimated CRCL calculation 46 ml/min; Estimated Glomerular Filt Rate > 60; Glucose 167 mg/dL (65-110); Magnesium 1.7 mg/dL (1.6-2.3); Sodium 132 mmol/L (137-145)
[2024-01-01] MEDS: CEFEPIME 2 GM/NS 50 ML 2 GM/50 ML BAG IVPB ×3 (06:04→21:28)
[2024-01-01] MEDS: ALPRAZolam (*CRX) 0.5 MG TABLET PO ×3 (06:05→21:28)
[2024-01-01] MEDS: FLUTICASONE/UMECLIDIN/VILANTER 200-62.5-25 MCG ELLIPTA 1 PUFF INHALATION (07:33)
[2024-01-01 07:52] LABS: Glucose Point of Care 113 mg/dl (65-105)
[2024-01-01] MEDS: LORATADINE 10 MG TABLET PO (08:33)
[2024-01-01] MEDS: FUROSEMIDE 40 MG TABLET PO ×2 (08:33→16:20)
[2024-01-01] MEDS: lisinopriL 5 MG TABLET PO (08:33)
[2024-01-01] MEDS: CYANOCOBALAMIN 1,000 MCG TABLET 1000 MCG PO (08:33)
[2024-01-01] MEDS: ATORVASTATIN 20 MG TABLET PO (08:33)
[2024-01-01] MEDS: DOXYCYCLINE HYCLATE 100 MG TABLET PO ×2 (08:33→21:28)
[2024-01-01] MEDS: POTASSIUM CHLORIDE 20 MEQ ER TABLET PO ×2 (08:34→16:20)
[2024-01-01] MEDS: ENOXAPARIN 40 MG/0.4 ML SYRINGE SUB-Q (08:34)
[2024-01-01] MEDS: busPIRone HCL 10 MG TABLET PO ×2 (08:34→16:20)
[2024-01-01] MEDS: FLUTICASONE PROPIONATE 0.05% NA SPR 16 GM BTL (*BKC) 2 SPRAY NASAL (08:37)
[2024-01-01 10:14] LABS: CRP 21.2 mg/dL (<1.0)
--- NOTE | 2024-01-01 10:36 | PM.IMPN ---
Progress Note: A&P Assessment and Plan (1) Community acquired pneumonia: Code(s): J18.9 - Pneumonia, unspecified organism Status: Acute Assessment and Plan: Suspected on chest x-ray, confirmed by CTA, pneumonia right lower lobe and left upper lobe. Antibiotics changed to cefepime and doxycycline. MRSA nares not detected. Flu COVID RSV were negative. Testing ordered for chlamydia pneumonia a, Legionella and pneumococcal antigen. Patient unable to produce sputum sample for culture 12/31: White blood cell count improving, CRP still elevating. Ordered DuoNebs and IV Solu-Medrol. (2) Acute hypoxic respiratory failure: Code(s): J96.01 - Acute respiratory failure with hypoxia Status: Acute Assessment and Plan: History of mild COPD no prior oxygen use but requiring 3 liters/minute since admission. Increase oxygen and felt to be related to pneumonia. CTA obtained to rule out PE, confirms pneumonia and no PE on imaging. 12/31: Continues to require the supplemental oxygen, usually on room air at home (3) Anxiety: Code(s): F41.9 - Anxiety disorder, unspecified Status: Acute Assessment and Plan: Patient reports up to 10 panic attack per day over last 3 weeks since she started having sinusitis symptoms. 12/31: Added p.r.n. alprazolam panic attacks (4) Gastroesophageal reflux disease: Code(s): K21.9 - Gastro-esophageal reflux disease without esophagitis Status: Chronic Assessment and Plan: Chronic, continue home medication (5) Chronic low back pain: Code(s): M54.50 - Low back pain, unspecified; G89.29 - Other chronic pain Status: Chronic Assessment and Plan: Chronic, continue home medication (6) Nicotine abuse: Code(s): Z72.0 - Tobacco use Status: Acute Assessment and Plan: Smoking cessation discussed Time Spent With Patient Time with patient: Greater than 35 minutes Subjective Date/time seen: 01/01/24 10:36 Interval history: Patient reports that her oxygen had been turned off last night when getting back from CT scan. She reports that eventually got restarted and she began to feel better. She reports that she still having significant anxiety. Patient denies any chest pain, still coughing. Review of Systems Review of Systems: All systems reviewed & are unremarkable except as noted in HPI and below Exam Narrative: patient is sitting in bed Const: General: cooperative, comfortable, no acute distress, well developed, alert, awake, ill appearing acutely and average body habitus Nutritional Appearance: average body habitus Orientation/consciousness: patient oriented x3 HENMT: Head: normal to inspection, normocephalic and atraumatic Ears: hearing grossly normal bilaterally Face/Nose/Sinus: normal facial exam Face and sinus: normal facial exam Eyes: General: appearance normal, both eyes and all related structures Pupils: Equal, round and reactive pupils present EOM: EOMs intact bilaterally Neck: Neck: full ROM, no lymphadenopathy and no JVD Thyroid: thyroid normal Lymphatic: no lymphadenopathy noted Resp: Effort & Inspection: normal respiratory effort, able to speak in complete sentences, Actively coughing and tachypneic Auscultation: clear to auscultation bilaterally, crackles (Worse on the right), wheezes (Faint throughout) and diminished lung sounds (Worse on the left) Cardio: Jugular venous distension: no JVD Rate: regular rate Rhythm: regular rhythm Heart sounds: S1 normal heart sound present and S2 normal heart sound present : General: Yes deferred Skin: Rashes: no rashes Wounds: no wounds Neuro: General: patient oriented x3 and CN's II-XI intact bilaterally Cranial nerves: Yes CN's II-XII intact bilaterally and Yes Equal, round and reactive pupils present Cognition (Neuro): normal cognition Speech: normal speech Gait exam (Neuro): Normal gait present Motor exam (neuro): 55 motor
[2024-01-01] MEDS: methylPREDNISolone SOD SUCC 125 MG VIAL IV PUSH (11:34)
[2024-01-01 11:42] LABS: Glucose Point of Care 120 mg/dl (65-105)
--- NOTE | 2024-01-01 13:41 | PC.NURSE ---
On 01/01/24, the student, [Anastasia Zuniga], provided care and completed [facility] documentation on this patient. I have reviewed the student's documentation and agree with the findings.
[2024-01-01] MEDS: IPRATROPIUM 0.5 MG/ALBUTEROL SULFATE 2.5 MG AMPUL.NEB 3 ML INHALATION ×2 (13:54→20:52)
[2024-01-01 16:41] LABS: Glucose Point of Care 213 mg/dl (65-105)
[2024-01-01 20:45] LABS: Glucose Point of Care 293 mg/dl (65-105)
[2024-01-01] MEDS: SIMETHICONE 80 MG TAB.CHEW PO (21:28)
[2024-01-01] MEDS: CITALOPRAM HYDROBROMIDE 20 MG TABLET PO (21:28)
[2024-01-01] MEDS: MELATONIN 5 MG TABLET PO (21:29)
[2024-01-02] VITALS (21 sets, daily range): BP systolic 124–138; BP diastolic 45–63; PULSE 58–99; RESP 16–20; TEMP 36.3–36.6; O2SAT 92–98
[2024-01-02] MEDS: IPRATROPIUM 0.5 MG/ALBUTEROL SULFATE 2.5 MG AMPUL.NEB 3 ML INHALATION ×4 (01:08→20:04)
[2024-01-02] MEDS: BENZONATATE 100 MG CAPSULE PO (01:30)
[2024-01-02] MEDS: guaiFENesin/DEXTROMETHORPHAN 10 ML UDC PO ×3 (02:51→17:28)
[2024-01-02] MEDS: MORPHINE SULFATE (*CRX) 4 MG/ML INJ IV PUSH (02:51)
[2024-01-02] MEDS: ALPRAZolam (*CRX) 0.5 MG TABLET PO ×3 (05:03→21:02)
[2024-01-02] MEDS: CEFEPIME 2 GM/NS 50 ML 2 GM/50 ML BAG IVPB ×3 (05:10→21:02)
[2024-01-02 05:37] LABS: Basophils Percent Auto 0.2 % (0.2-1.2); Hematocrit 41.6 % (37.0-47.0); Hemoglobin 13.5 g/dL (12.0-15.0); Immature Granulocyte Absolute 0.09 K/mm3 (0.00-0.031); Immature Granulocyte Percent A 0.8 % (0-0.5); Lymphocytes Absolute Auto 1.06 K/mm3 (0.9-3.2); Lymphocytes Percent Auto 9.3 % (18.3-44.2); Mean Corpuscular HGB Conc 32.5 g/dl (32-36); Mean Corpuscular Volume 95.4 fl (80-100); Mean Platelet Volume 10.2 fl (7.4-10.4); Monocytes Absolute Auto 1.3 K/mm3 (0.1-0.6); Monocytes Percent Auto 11.5 % (2.6-8.5); Neutrophils Percent Auto 78.2 % (45.5-73.1); Platelet Count Result 320 k/mm3 (150-375); Red Blood Count 4.36 M/mm3 (4.2-5.4); Red Cell Distribution Width 14.5 % (11.5-14.5); White Blood Count 11.4 K/mm3 (4.5-10.0)
[2024-01-02 05:47] LABS: Alanine Aminotransferase 39 U/L (6-35); Albumin Level 3.2 g/dL (3.5-5.1); Alkaline Phosphatase 111 U/L (38-126); Anion Gap 3 mmol/L (4-12); Aspartate Amino Transferase 25 U/L (14-36); Bilirubin,Total 0.5 mg/dL (0.2-1.3); Blood Urea Nitrogen 15 mg/dL (7-17); Calcium 9.1 mg/dL (8.4-10.2); Carbon Dioxide 31 mmol/L (22-30); Chloride 100 mmol/L (98-107); Estimated CRCL calculation 76 ml/min; Estimated Glomerular Filt Rate > 60; Glucose 178 mg/dL (65-110); Magnesium 1.8 mg/dL (1.6-2.3); Sodium 134 mmol/L (137-145)
[2024-01-02 06:05] LABS: CRP 14.5 mg/dL (<1.0)
[2024-01-02] MEDS: FLUTICASONE/UMECLIDIN/VILANTER 200-62.5-25 MCG ELLIPTA 1 PUFF INHALATION (08:10)
[2024-01-02 08:12] LABS: Glucose Point of Care 173 mg/dl (65-105)
--- NOTE | 2024-01-02 09:08 | PM.IMPN ---
Progress Note: A&P Assessment and Plan (1) Community acquired pneumonia: Code(s): J18.9 - Pneumonia, unspecified organism Status: Acute Assessment and Plan: Suspected on chest x-ray, confirmed by CTA, pneumonia right lower lobe and left upper lobe. Antibiotics changed to cefepime and doxycycline. MRSA nares not detected. Flu COVID RSV were negative. Testing ordered for chlamydia pneumonia a, Legionella and pneumococcal antigen. Patient unable to produce sputum sample for culture 12/31: White blood cell count improving, CRP still elevating. Ordered DuoNebs and IV Solu-Medrol. 01/01: White blood cell count improving. Patient had coughing fit after DuoNeb yesterday. Added PEP therapy and discussed the importance of continue neb treatments despite coughing fit yesterday. (2) Acute hypoxic respiratory failure: Code(s): J96.01 - Acute respiratory failure with hypoxia Status: Acute Assessment and Plan: History of mild COPD no prior oxygen use but requiring 3 liters/minute since admission. Increase oxygen and felt to be related to pneumonia. CTA obtained to rule out PE, confirms pneumonia and no PE on imaging. 12/31: Continues to require the supplemental oxygen, usually on room air at home 01/01: Unable yet to wean down on oxygen. (3) Anxiety: Code(s): F41.9 - Anxiety disorder, unspecified Status: Acute Assessment and Plan: Patient reports up to 10 panic attack per day over last 3 weeks since she started having sinusitis symptoms. 12/31: Added p.r.n. alprazolam panic attacks (4) Gastroesophageal reflux disease: Code(s): K21.9 - Gastro-esophageal reflux disease without esophagitis Status: Chronic Assessment and Plan: Chronic, continue home medication (5) Chronic low back pain: Code(s): M54.50 - Low back pain, unspecified; G89.29 - Other chronic pain Status: Chronic Assessment and Plan: Chronic, continue home medication (6) Nicotine abuse: Code(s): Z72.0 - Tobacco use Status: Acute Assessment and Plan: Smoking cessation discussed Time Spent With Patient Time with patient: Greater than 35 minutes Subjective Date/time seen: 01/02/24 09:08 Interval history: Patient reports that yesterday afternoon/evening she had an excessive coughing fit after nebulizer treatment stating that she cough over an hour required multiple cough medications and morphine to get cough under control. Review of records shows that nebulizer treatments since then had been declined. This morning patient spoke to respiratory therapy and declined DuoNeb until after provider evaluation. I spoke with patient and informed her that she needs to be mobilizing more frequently, getting up walking, out of bed for meals, he repeated breathing treatments to help open up airways and allow mobilization of secretions. I ordered PEP therapy. Review of Systems Review of Systems: All systems reviewed & are unremarkable except as noted in HPI and below Exam Narrative: patient is sitting in bed Const: General: cooperative, comfortable, no acute distress, well developed, alert, awake, ill appearing acutely and average body habitus Nutritional Appearance: average body habitus Orientation/consciousness: patient oriented x3 HENMT: Head: normal to inspection, normocephalic and atraumatic Ears: hearing grossly normal bilaterally Face/Nose/Sinus: normal facial exam Face and sinus: normal facial exam Eyes: General: appearance normal, both eyes and all related structures Pupils: Equal, round and reactive pupils present EOM: EOMs intact bilaterally Neck: Neck: full ROM, no lymphadenopathy and no JVD Thyroid: thyroid normal Lymphatic: no lymphadenopathy noted Resp: Effort & Inspection: normal respiratory effort, able to speak in complete sentences, Actively coughing and tachypneic Auscultation: crackles (Worse on the right), wheezes (Faint throughout) and
[2024-01-02] MEDS: CYANOCOBALAMIN 1,000 MCG TABLET 1000 MCG PO (09:11)
[2024-01-02] MEDS: ENOXAPARIN 40 MG/0.4 ML SYRINGE SUB-Q (09:11)
[2024-01-02] MEDS: busPIRone HCL 10 MG TABLET PO ×2 (09:11→17:28)
[2024-01-02] MEDS: ATORVASTATIN 20 MG TABLET PO (09:11)
[2024-01-02] MEDS: DOXYCYCLINE HYCLATE 100 MG TABLET PO ×2 (09:11→21:01)
[2024-01-02] MEDS: FUROSEMIDE 40 MG TABLET PO ×2 (09:12→17:28)
[2024-01-02] MEDS: LORATADINE 10 MG TABLET PO (09:12)
[2024-01-02] MEDS: FLUTICASONE PROPIONATE 0.05% NA SPR 16 GM BTL (*BKC) 2 SPRAY NASAL (09:12)
[2024-01-02] MEDS: lisinopriL 5 MG TABLET PO (09:12)
[2024-01-02 12:08] LABS: Glucose Point of Care 84 mg/dl (65-105)
--- NOTE | 2024-01-02 12:44 | PC.NURSE ---
On 01/02/24, the student, [Anastasia Zuniga], provided care and completed [facility] on this patient. I have reviewed the student's documentation and agree with the findings.
[2024-01-02 17:13] LABS: Glucose Point of Care 116 mg/dl (65-105)
[2024-01-02] MEDS: POTASSIUM CHLORIDE 20 MEQ ER TABLET PO (17:33)
[2024-01-02 20:20] LABS: Glucose Point of Care 143 mg/dl (65-105)
[2024-01-02] MEDS: CITALOPRAM HYDROBROMIDE 20 MG TABLET PO (21:01)
[2024-01-02] MEDS: MELATONIN 5 MG TABLET PO (21:17)
[2024-01-03] VITALS (19 sets, daily range): BP systolic 125–143; BP diastolic 41–55; PULSE 73–110; RESP 16–20; TEMP 35.8–36.6; O2SAT 84–95
[2024-01-03] MEDS: guaiFENesin/DEXTROMETHORPHAN 10 ML UDC PO ×2 (02:06→21:36)
[2024-01-03] MEDS: ALPRAZolam (*CRX) 0.5 MG TABLET PO ×3 (05:06→20:52)
[2024-01-03] MEDS: CEFEPIME 2 GM/NS 50 ML 2 GM/50 ML BAG IVPB ×3 (05:06→20:53)
[2024-01-03 05:24] LABS: Basophils Absolute Auto 0.1 K/mm3 (0.0-0.1); Basophils Percent Auto 0.4 % (0.2-1.2); Eosinophils Absolute Auto 0.1 K/mm3 (0-0.3); Eosinophils Percent Auto 1.1 % (0-4.4); Hematocrit 44.9 % (37.0-47.0); Hemoglobin 14.7 g/dL (12.0-15.0); Immature Granulocyte Absolute 0.06 K/mm3 (0.00-0.031); Immature Granulocyte Percent A 0.5 % (0-0.5); Lymphocytes Absolute Auto 2.64 K/mm3 (0.9-3.2); Lymphocytes Percent Auto 19.9 % (18.3-44.2); Mean Corpuscular HGB Conc 32.7 g/dl (32-36); Mean Corpuscular Hemoglobin 31.1 pg (26-34); Mean Corpuscular Volume 94.9 fl (80-100); Monocytes Absolute Auto 1.5 K/mm3 (0.1-0.6); Monocytes Percent Auto 11.3 % (2.6-8.5); Neutrophils Absolute Auto 8.9 K/mm3 (1.3-6.7); Neutrophils Percent Auto 66.8 % (45.5-73.1); Platelet Count Result 342 k/mm3 (150-375); Red Blood Count 4.73 M/mm3 (4.2-5.4); Red Cell Distribution Width 14.7 % (11.5-14.5); White Blood Count 13.2 K/mm3 (4.5-10.0)
[2024-01-03 05:42] LABS: Alanine Aminotransferase 49 U/L (6-35); Albumin Level 3.5 g/dL (3.5-5.1); Alkaline Phosphatase 113 U/L (38-126); Anion Gap 4 mmol/L (4-12); Aspartate Amino Transferase 33 U/L (14-36); Bilirubin,Total 0.6 mg/dL (0.2-1.3); Blood Urea Nitrogen 16 mg/dL (7-17); CRP 6.4 mg/dL (<1.0); Calcium 9.2 mg/dL (8.4-10.2); Carbon Dioxide 36 mmol/L (22-30); Chloride 95 mmol/L (98-107); Estimated CRCL calculation 53 ml/min; Estimated Glomerular Filt Rate > 60; Glucose 123 mg/dL (65-110); Magnesium 1.5 mg/dL (1.6-2.3); Sodium 135 mmol/L (137-145)
[2024-01-03] MEDS: IPRATROPIUM 0.5 MG/ALBUTEROL SULFATE 2.5 MG AMPUL.NEB 3 ML INHALATION ×3 (07:22→15:20)
[2024-01-03] MEDS: FLUTICASONE/UMECLIDIN/VILANTER 200-62.5-25 MCG ELLIPTA 1 PUFF INHALATION (07:22)
[2024-01-03 08:04] LABS: Glucose Point of Care 107 mg/dl (65-105)
[2024-01-03] MEDS: MAGNESIUM SULF 2 GM/WATER 50ML 2 GM/50 ML BAG IVPB (08:41)
[2024-01-03] MEDS: FLUTICASONE PROPIONATE 0.05% NA SPR 16 GM BTL (*BKC) 2 SPRAY NASAL (08:42)
[2024-01-03] MEDS: DOXYCYCLINE HYCLATE 100 MG TABLET PO ×2 (08:43→20:52)
[2024-01-03] MEDS: LORATADINE 10 MG TABLET PO (08:43)
[2024-01-03] MEDS: ATORVASTATIN 20 MG TABLET PO (08:43)
[2024-01-03] MEDS: busPIRone HCL 10 MG TABLET PO ×2 (08:43→17:34)
[2024-01-03] MEDS: FUROSEMIDE 40 MG TABLET PO (08:43)
[2024-01-03] MEDS: POTASSIUM CHLORIDE 20 MEQ ER TABLET PO (08:44)
[2024-01-03] MEDS: ENOXAPARIN 40 MG/0.4 ML SYRINGE SUB-Q (08:44)
[2024-01-03] MEDS: CYANOCOBALAMIN 1,000 MCG TABLET 1000 MCG PO (08:44)
[2024-01-03] MEDS: lisinopriL 5 MG TABLET PO (08:44)
[2024-01-03 12:17] LABS: Glucose Point of Care 109 mg/dl (65-105)
--- NOTE | 2024-01-03 12:46 | PM.IMPN ---
Progress Note: A&P Assessment and Plan (1) Community acquired pneumonia: Code(s): J18.9 - Pneumonia, unspecified organism Status: Acute Assessment and Plan: Patient presents for shortness of breath. Chest x-ray showed right basilar airspace disease and mild interstitial edema. CTA of the chest was negative for PE but did show new areas of patchy consolidation in the right lower lobe and left upper lobe as well as moderate emphysema. These results were discussed with the patient. MRSA nares negative. Flu, COVID and RSV were negative. She was started on IV antibiotics and now on cefepime and doxycycline. WBC up slightly but CRP trending down. Blood cultures no growth to date. Continue abx and neb treatments. Wean O2 as tolerated (2) Acute hypoxic respiratory failure: Code(s): J96.01 - Acute respiratory failure with hypoxia Status: Acute Assessment and Plan: History of mild COPD but not on home oxygen. Has required O2 since admission. Increase oxygen requirement felt related to PNA but may have underlying O2 requirement. Wean down oxygen as tolerated Home O2 evaluation. Encouraged her to be up walking (3) Anxiety: Code(s): F41.9 - Anxiety disorder, unspecified Status: Acute Assessment and Plan: Patient reports hx of panic attacks but unclear if increased frequency recently related to PNA and/or poorbly controlled anxiety. She will follow-up with her doctor about this. Jimmy Hernandez (4) Emphysema/COPD: Qualifiers: Emphysema type: unspecified Qualified Code(s): J43.9 - Emphysema, unspecified Code(s): J43.9 - Emphysema, unspecified Status: Acute Assessment and Plan: CTA of the chest shows emphysema. She is on Trelegy which was continued here. She is on Lasix p.r.n.. She states her pedal edema has resolved and would like to stop Lasix for now. Echocardiogram in August did not show any pulmonary hypertension. Wean oxygen as tolerated. (5) Nicotine abuse: Code(s): Z72.0 - Tobacco use Status: Acute Assessment and Plan: Patient was educated about the benefits of smoking cessation. Plan DVT prophylaxis -Lovenox Code status -full Subjective Date/time seen: 01/03/24 12:46 Interval history: 68yo female with untrated CARINE, anxiety and tobacco abuse here for shortness of breath. Assuming care. Chart reviewed. Patient feels better today. She slept well overnight. No complaints of chest pain or shortness of breath. She does have dyspnea on exertion. Her cough is productive of yellowish brown sputum. She noted epistaxis. Eating well. She states she has a history of sleep apnea when she was heavier has lost about 40 lb. She never could tolerate the BiPAP. She is coughing more with the breathing treatments. Exam Narrative: AF 97.9 143/55 96 16 95% 2L Gen - NARD sitting up in chair Chest -distant but clear breath sounds CV - RRR S1/S2. Telemetry showing no significant dysrhythmias but does show a few PVCs. Abd - Soft, NT/ND, Positive BS Ext - No pedal edema Psych - Nml mood and affect Skin - Warm and dry Objective Data Vital Signs Vital Signs: Vital Signs - 24 hr 01/02/24 14:00 01/02/24 16:22 01/02/24 16:33 Temperature 98 F Pulse Rate 58 L 88 88 Respiratory Rate 17 20 20 Blood Pressure 124/58 L Pulse Oximetry 92 Oxygen Delivery Oxygen Flow Rate 01/02/24 16:00 01/02/24 19:58 01/02/24 20:04 Temperature 97.4 F L Pulse Rate 95 97 Respiratory Rate 16 Blood Pressure 127/45 L Pulse Oximetry 94 94 Oxygen Delivery Nasal Cannula Oxygen Flow Rate 2 01/02/24 20:04 01/02/24 20:10 01/02/24 20:00 Temperature Pulse Rate 91 95 97 Respiratory Rate 16 16 Blood Pressure Pulse Oximetry Oxygen Delivery Oxygen Flow Rate 01/03/24 00:00 01/03/24 04:00 01/03/24 04:35 Temperature 97.9 F Pulse Rate 90 81
--- NOTE | 2024-01-03 14:40 | HOMEO2EVAL ---
Evaluation was performed at [facility] Home Oxygen Evaluation RC: Home Oxygen (O2) Evaluation Start: 01/03/24 13:01 Freq: ONCE Status: Active Protocol: RPE Activity Type Activity Date Activity User E-sign Co-sign Detail Recorded Client Recorded Date Recorded By Document 01/03/24 14:10 [email or web address] [email or web address] 01/03/24 14:40 CLC Document 01/03/24 14:12 [email or web address] [email or web address] 01/03/24 14:40 CLC Document 01/03/24 14:14 [email or web address] [email or web address] 01/03/24 14:40 CLC Document 01/03/24 14:16 [email or web address] [email or web address] 01/03/24 14:40 CLC Document 01/03/24 14:18 [email or web address] [email or web address] 01/03/24 14:40 CLC Document 01/03/24 14:18 [email or web address] [email or web address] 01/03/24 14:40 CLC 01/03/24 01/03/24 01/03/24 14:10 14:12 14:14 Home O2 Evaluation [Oxygen] -Test Phase Resting Resting Exercise -Oxygen Delivery Room Air Nasal Cannula Nasal Cannula -Oxygen Flow Rate (L/min) 2 2 [Pulse Oximetry] -Pulse Oximetry (90-100 %) 91 91 86 L [Pulse Rate] -Pulse Rate (60-100 beats/min) 110 H 102 H 109 H [Evaluation] -Activity Tolerance Fair [Exercise] -Ambulation Distance (feet) 200 -Ambulation Distance (meters) 60.95 [Charges] -Evaluation Charges O2 Evaluation by 01/03/24 01/03/24 01/03/24 14:16 14:18 14:18 Home O2 Evaluation [Oxygen] -Test Phase Exercise Exercise Exercise -Oxygen Delivery Nasal Cannula Nasal Cannula Nasal Cannula -Oxygen Flow Rate (L/min) 3 4 5 [Pulse Oximetry] -Pulse Oximetry (90-100 %) 84 L 86 L 91 [Pulse Rate] -Pulse Rate (60-100 beats/min) 110 H 104 H 95 [Evaluation] -Activity Tolerance [Exercise] -Ambulation Distance (feet) -Ambulation Distance (meters) [Charges] -Evaluation Charges
--- NOTE | 2024-01-03 14:41 | PCRCNOTE ---
Home oxygen evaluation completed. Patient requires 2 liters per minute at rest and 5 liters per minute with exertion. RN aware.
--- NOTE | 2024-01-03 16:56 | PCRCNOTE ---
Patient set up with [employer]. Orders faxed.
[2024-01-03 17:09] LABS: Glucose Point of Care 151 mg/dl (65-105)
[2024-01-03 20:00] LABS: Glucose Point of Care 94 mg/dl (65-105)
[2024-01-03] MEDS: CITALOPRAM HYDROBROMIDE 20 MG TABLET PO (20:52)
[2024-01-03] MEDS: MELATONIN 5 MG TABLET PO (20:52)
[2024-01-03] MEDS: DOCUSATE SODIUM 100 MG CAPSULE PO (20:52)
[2024-01-04] MEDS: IPRATROPIUM 0.5 MG/ALBUTEROL SULFATE 2.5 MG AMPUL.NEB 3 ML INHALATION ×2 (00:56→09:44)
[2024-01-04 00:57] VITALS: PULSE 84; RESP 18
[2024-01-04] MEDS: guaiFENesin/DEXTROMETHORPHAN 10 ML UDC PO (02:02)
[2024-01-04 05:34] VITALS: BP 139/48; PULSE 87; RESP 16; TEMP 35.7; O2SAT 92
[2024-01-04 05:48] LABS: Basophils Absolute Auto 0.1 K/mm3 (0.0-0.1); Basophils Percent Auto 0.6 % (0.2-1.2); Eosinophils Absolute Auto 0.2 K/mm3 (0-0.3); Eosinophils Percent Auto 1.7 % (0-4.4); Hematocrit 44.8 % (37.0-47.0); Hemoglobin 14.4 g/dL (12.0-15.0); Immature Granulocyte Absolute 0.08 K/mm3 (0.00-0.031); Immature Granulocyte Percent A 0.8 % (0-0.5); Lymphocytes Absolute Auto 2.45 K/mm3 (0.9-3.2); Lymphocytes Percent Auto 24.7 % (18.3-44.2); Mean Corpuscular HGB Conc 32.1 g/dl (32-36); Mean Corpuscular Volume 96.6 fl (80-100); Monocytes Absolute Auto 1.4 K/mm3 (0.1-0.6); Monocytes Percent Auto 14.3 % (2.6-8.5); Neutrophils Absolute Auto 5.7 K/mm3 (1.3-6.7); Neutrophils Percent Auto 57.9 % (45.5-73.1); Platelet Count Result 369 k/mm3 (150-375); Red Blood Count 4.64 M/mm3 (4.2-5.4); Red Cell Distribution Width 14.6 % (11.5-14.5); White Blood Count 9.9 K/mm3 (4.5-10.0)
[2024-01-04 05:53] LABS: Glucose Point of Care 108 mg/dl (65-105)
[2024-01-04 06:08] LABS: Blood Urea Nitrogen 19 mg/dL (7-17); Calcium 9.1 mg/dL (8.4-10.2); Carbon Dioxide > 40 mmol/L (22-30); Chloride 95 mmol/L (98-107); Estimated CRCL calculation 53 ml/min; Estimated Glomerular Filt Rate > 60; Glucose 114 mg/dL (65-110); Potassium 4.2 mmol/L (3.4-5.0); Sodium 136 mmol/L (137-145)
[2024-01-04] MEDS: ALPRAZolam (*CRX) 0.5 MG TABLET PO (06:35)
[2024-01-04] MEDS: CEFEPIME 2 GM/NS 50 ML 2 GM/50 ML BAG IVPB (06:35)
[2024-01-04 08:44] LABS: Glucose Point of Care 103 mg/dl (65-105)
[2024-01-04 09:10] VITALS: O2SAT 93
[2024-01-04] MEDS: ATORVASTATIN 20 MG TABLET PO (09:14)
[2024-01-04] MEDS: busPIRone HCL 10 MG TABLET PO (09:14)
[2024-01-04] MEDS: DOCUSATE SODIUM 100 MG CAPSULE PO (09:15)
[2024-01-04] MEDS: CYANOCOBALAMIN 1,000 MCG TABLET 1000 MCG PO (09:15)
[2024-01-04] MEDS: DOXYCYCLINE HYCLATE 100 MG TABLET PO (09:15)
[2024-01-04] MEDS: ENOXAPARIN 40 MG/0.4 ML SYRINGE SUB-Q (09:16)
[2024-01-04] MEDS: lisinopriL 5 MG TABLET PO (09:16)
[2024-01-04] MEDS: LORATADINE 10 MG TABLET PO (09:16)
[2024-01-04] MEDS: FLUTICASONE PROPIONATE 0.05% NA SPR 16 GM BTL (*BKC) 2 SPRAY NASAL (09:16)
[2024-01-04 09:44] VITALS: PULSE 87; RESP 16
[2024-01-04] MEDS: FLUTICASONE/UMECLIDIN/VILANTER 200-62.5-25 MCG ELLIPTA 1 PUFF INHALATION (09:44)
[2024-01-04 09:48] VITALS: O2SAT 94
[2024-01-04 09:50] VITALS: PULSE 85; RESP 16
--- NOTE | 2024-01-04 11:05 | PM.DS ---
DS: Admitting Diagnosis Discharge Date 01/04/24 Admitting Diagnosis Shortness of breath DS: Discharge Diagnosis Discharge Diagnosis (1) Community acquired pneumonia: Code(s): J18.9 - Pneumonia, unspecified organism Status: Acute (2) Acute hypoxic respiratory failure: Code(s): J96.01 - Acute respiratory failure with hypoxia Status: Acute (3) Anxiety: Code(s): F41.9 - Anxiety disorder, unspecified Status: Acute (4) Emphysema/COPD: Qualifiers: Emphysema type: unspecified Qualified Code(s): J43.9 - Emphysema, unspecified Code(s): J43.9 - Emphysema, unspecified Status: Acute (5) Nicotine abuse: Code(s): Z72.0 - Tobacco use Status: Acute DS: Summary Hospital Course Reason for hospitalization: 68yo female with untreated CARINE, anxiety and tobacco abuse here for shortness of breath. Please see H&P for details Hospital Course: Patient presents for shortness of breath.? Chest x-ray showed right basilar airspace disease and mild interstitial edema.? CTA of the chest was negative for PE but did show new areas of patchy consolidation in the right lower lobe and left upper lobe as well as moderate emphysema.? These results were discussed with the patient.? MRSA nares negative.? Flu, COVID and RSV were negative.? She was started on IV antibiotics and transitioned to cefepime and doxycycline. WBC was 27K but trended to normal with treatment. Blood cultures no growth to date. Patient with a history of mild COPD but not on home oxygen. CTA of the chest shows emphysema.? She is on Trelegy which was continued here.?Echocardiogram in August did not show any pulmonary hypertension.Has required O2 since admission.? Increase oxygen requirement felt related to PNA but may have underlying O2 requirement. Patient reports hx of panic attacks but unclear if increased frequency recently related to PNA and/or poorly controlled anxiety. She will follow-up with her doctor about this. We continued her Xanax and BusPar. She was on scheduled Lasix here but she states she only takes p.r.n. for edema.? Her pedal edema has resolved and she wanted to stop Lasix which we did. Patient was educated about the benefits of smoking cessation. She was also educated multiple times about the risks of usinig oxygen near smoking or open flame. She voices understanding of this. She dis well. She feels 'a lot better'. She is requesting discharge. Home O2 evaluation showing she needs 2L at rest and 5L with exertion. She overall did well and was able to be discharged home on 01/03 Status at Discharge Cognitive/behavioral status at discharge: stable Time Spent with Patient Time attestation: Total time spent providing and/or coordinating discharge services: 32 minutes Time spent: Greater than 30 minutes Exam Narrative: AF 96.3 139/48 85 16 94% 2L Gen - NARD sitting up in chair Chest - R>L bibasilar inspiratory crackles. nml RR CV - RRR S1/S2 Abd - Soft, NT/ND, Positive BS Ext - No pedal edema Psych - Nml mood and affect Skin - Warm and dry DS: Data Data Completed and Pending Labs on day of discharge: Labs from last 24 hours 01/04/24 01/04/24 01/04/24 08:30 05:18 04:53 WBC 9.9 RBC 4.64 Hgb 14.4 Hct 44.8 MCV 96.6 MCH 31.0 MCHC 32.1 RDW 14.6 H Plt Count 369 MPV 10.0 Immature Gran % (Auto) 0.8 H Neut % (Auto) 57.9 Lymph % (Auto) 24.7 [place] % (Auto) 14.3 H Eos % (Auto) 1.7 Baso % (Auto) 0.6 Lymph # (Auto) 2.45 [place] # (Auto) 1.4 H Eos # (Auto) 0.2 Baso # (Auto) 0.1 Abs Immat Gran (auto) 0.08 H Absolute Neuts (auto) 5.7 Absolute Nucleated RBC 0.000 Nucleated RBC % 0.0 Sodium 136 L Potassium 4.2 Chloride 95 L Carbon Dioxide > 40 H Anion Gap BUN 19 H Creatinine 0.60 L Estim Creat Clear Calc 53 Estimated GFR > 60 Glucose 114 H POC Capillary Glucose 103 10
[2024-01-04 11:56] LABS: Glucose Point of Care 99 mg/dl (65-105)
[2024-01-05 07:48] LABS: Chlamydia pneumoniae by PCR Not Detected
[2024-01-05 17:28] LABS: Pneumococcal Antigen Urine NOT DETECTED
[2024-01-10 22:03] LABS: Legionella pneumophila Ag Ur NOT DETECTED
--- NOTE | 2024-01-12 11:35 | PC.NURSE ---
Urine legionella Ag is negative. Chlamydia is negative. Dr. Jerry orellana.
== END 2024-01-04 12:40 | disposition home or self-care (01) | DRG 193 ==
LOC: ANHED 21:50 → ANH2MED 22:16
PROVIDERS: Nurse Practitioner; Admitting Provider Internal Medicine; Emergency Provider Student in an Organized Health Care Education/Training Program; PCP Nurse Practitioner Family; Visit Provider Internal Medicine
DX: J18.9 Pneumonia, unspecified organism (principal); J96.01 Acute respiratory failure with hypoxia; J44.0 Chronic obstructive pulmonary disease with (acute) lower respiratory infection; I10 Essential (primary) hypertension; E11.9 Type 2 diabetes mellitus without complications; E78.2 Mixed hyperlipidemia; K21.9 Gastro-esophageal reflux disease without esophagitis; M15.9 Polyosteoarthritis, unspecified; M54.50 Low back pain, unspecified; G89.29 Other chronic pain; G47.33 Obstructive sleep apnea (adult) (pediatric); F32.A Depression, unspecified; F17.210 Nicotine dependence, cigarettes, uncomplicated; F41.9 Anxiety disorder, unspecified; Z20.822 Contact with and (suspected) exposure to COVID-19
CPT/HCPCS: 36415; 71045; 71046; 71275; 80048; 80053; 80069; 82948; 83605; 83735; 83880; 84145; 84484; 85025; 85380; 86140; 87040; 87070; 87205; 87449; 87486; 87637; 87641; 87899; 93005; 94618; 94640; 96365; 99291; A9270; J0692; J0696; J1200; J1650; J2060; J2270; J2919; J3475; Q9967

== ENCOUNTER 2024-02-04 12:40 | Outpatient (CLI) | payer MEDICARE, SELFPAY ==
[2024-02-04 13:15] LABS: Alveolar/Arterial O2 Gradient 80.8 mmHg; Base Excess ABG 1.2 mEq/l (+/-2.0); Carboxyhemoglobin 2.6 % THb (0-2.0); Device NASAL CANNULA; Fractional Inspired Oxygen 28 %; HCO3 ABG 25.9 mEq/l (22.0-26.0); Methemoglobin ABG 0.1 %THb (0-1.5); Oxygen Content ABG 21.2 %vol (16.0-22.0); Oxygen Saturation ABG 94.2 % (95.0-100.0); Oxyhemoglobin 92.1 % THb (90.0-100.0); PCO2 ABG 41.5 mmHg (35.0-45.0); PO2 ABG 69.9 mmHg (80.0-100.0); Reduced Hemoglobin 5.2 %THb (0-5.0); Site Drawn RIGHT BRACHIAL; Total Hemoglobin 16.4 g/dL (12.0-18.0); pH ABG 7.413 (7.350-7.450)
--- NOTE | 2024-02-05 14:31 | WPDPFTINT ---
PFT Procedure Performed PFT Procedure Performed Spirometry with Pre/Post Bronchodilator Plethysmography (Lung Vol) Diffusing Cap (DLCO) Flow Vol Loop PFT Interpretation Lung volumes were measured with the body plethysmography method. Lung volumes are unremarkable. Spirometry showed diminished expiratory flow rates and a diminished FEV1 to FVC ratio 38%, indicative of obstructive airway disease. Following administration of a bronchodilator there was no significant increase in the expiratory flow rates. Lung diffusion capacity is severely reduced at 30% predicted. The diminished lung diffusion capacity coupled with low alveolar volume and low DLCO/VA ratio may indicate loss of alveolar capillary structure, as seen in emphysema or interstitial lung disease. Clinical correlation advised. The flow volume loop is consistent with obstructive airway disease. Impression: Severe obstructive airway disease with no response to bronchodilators on this testing. Severely reduced lung diffusion capacity
== END 2024-02-04 12:41 | disposition home or self-care (01) ==
LOC: ANHLAB 12:42 → ANHPFT 12:50
PROVIDERS: PCP Nurse Practitioner Family; Visit Provider Internal Medicine Pulmonary Disease
DX: J44.9 Chronic obstructive pulmonary disease, unspecified (principal); J43.9 Emphysema, unspecified
CPT/HCPCS: 36600; 82375; 82805; 83050; 94060; 94726; 94729

== ENCOUNTER 2024-02-18 13:33 | Outpatient (CLI) | payer MEDICARE, SELFPAY ==
--- NOTE | ~2024-02-18 | CT_ITS ---
CT Scan of the Chest without Contrast: Clinical Indication: COPD Technique: Contiguous sections were acquired throughout the chest without intravenous contrast. Dose reduction technique was used on this scan by utilizing automated exposure control and iterative recon struction technique. The dose-length product (DLP) was 78.36 mGy-cm. COMPARISON: 12/31/2023 Findings: There is no evidence of any significant mediastinal, hilar or axillary lymphadenopathy. There are ext ensive atherosclerotic calcifications of the aorta. There are mild coronary artery calcifications. There is no evidence of pleural or pericardial effusion. Advanced emphysema present. Previous noted patchy consolidation left upper lobe and right lower lobe is essentially completely, with minimal residual linear postinflammatory change or scarring. Images through the upper abdomen reveal no abnormalities. Impression: Essentially complete interval resolution of patchy pneumonia in the left upper lobe and right lower l obe, with minimal residual postinflammatory change/scarring. Advanced emphysema, unchanged. Reviewed, dictated and finalized at [facility]. Impression: Essentially complete interval resolution of patchy pneumonia in the left upper lobe and right lower lobe, with minimal residual postinflammatory change/scarri ng. Advanced emphysema, unchanged.
== END 2024-02-18 13:34 | disposition home or self-care (01) ==
PROVIDERS: PCP Nurse Practitioner Family; Visit Provider Internal Medicine Pulmonary Disease
DX: J44.9 Chronic obstructive pulmonary disease, unspecified (principal); J43.9 Emphysema, unspecified
CPT/HCPCS: 71250

== ENCOUNTER 2024-02-19 13:17 | Outpatient (CLI) | payer MEDICARE, SELFPAY ==
[2024-02-19 13:05] VITALS: PULSE 74; O2SAT 95
[2024-02-19 13:10] VITALS: PULSE 95; O2SAT 87
[2024-02-19 13:15] VITALS: PULSE 96; O2SAT 88
[2024-02-19 13:20] VITALS: PULSE 97; O2SAT 91
[2024-02-19 13:35] VITALS: PULSE 76; O2SAT 95
--- NOTE | 2024-02-19 13:50 | HOMEO2EVAL ---
Evaluation was performed at [facility] Home Oxygen Evaluation RC: Home Oxygen (O2) Evaluation Start: 02/19/24 13:48 Freq: Status: Active Protocol: RPE Activity Type Activity Date Activity User E-sign Co-sign Detail Recorded Client Recorded Date Recorded By Document 02/19/24 13:05 [email or web address] [email or web address] 02/19/24 13:50 DJO Document 02/19/24 13:10 [email or web address] [email or web address] 02/19/24 13:50 DJO Document 02/19/24 13:15 [email or web address] [email or web address] 02/19/24 13:50 DJO Document 02/19/24 13:20 [email or web address] [email or web address] 02/19/24 13:50 DJO Document 02/19/24 13:35 [email or web address] [email or web address] 02/19/24 13:50 DJO 02/19/24 02/19/24 02/19/24 13:05 13:10 13:15 Home O2 Evaluation [Oxygen] -Test Phase Resting Exercise Exercise -Oxygen Delivery Room Air Room Air Nasal Cannula -Oxygen Flow Rate (L/min) 1 [Pulse Oximetry] -Pulse Oximetry (90-100 %) 95 87 L 88 L [Pulse Rate] -Pulse Rate (60-100 beats/min) 74 95 96 [Evaluation] -Activity Tolerance [Exercise] -Ambulation Distance (feet) -Ambulation Distance (meters) [Charges] -Evaluation Charges O2 Evaluation by Pulmonary 02/19/24 02/19/24 13:20 13:35 Home O2 Evaluation [Oxygen] -Test Phase Exercise Resting -Oxygen Delivery Nasal Cannula Room Air -Oxygen Flow Rate (L/min) 2 [Pulse Oximetry] -Pulse Oximetry (90-100 %) 91 95 [Pulse Rate] -Pulse Rate (60-100 beats/min) 97 76 [Evaluation] -Activity Tolerance Good [Exercise] -Ambulation Distance (feet) 500 -Ambulation Distance (meters) 152.39 [Charges] -Evaluation Charges
== END 2024-02-19 13:18 | disposition home or self-care (01) ==
LOC: ANHPFT 13:17
PROVIDERS: PCP Nurse Practitioner Family; Visit Provider Internal Medicine Pulmonary Disease
DX: J44.9 Chronic obstructive pulmonary disease, unspecified (principal); Z99.81 Dependence on supplemental oxygen
CPT/HCPCS: 94618

== ENCOUNTER 2024-02-23 15:10 | Outpatient (CLI) | payer MEDICARE, SELFPAY ==
[2024-02-25 12:17] LABS: Alpha-1-Antitrypsin, QN 107 mg/dL (83-199)
== END 2024-02-23 15:11 | disposition home or self-care (01) ==
LOC: ANHLAB 15:13
PROVIDERS: PCP Nurse Practitioner Family; Visit Provider Internal Medicine Pulmonary Disease
DX: E88.01 Alpha-1-antitrypsin deficiency (principal)
CPT/HCPCS: 36415; 82103

== ENCOUNTER 2024-03-23 12:31 | Outpatient (CLI) | payer MEDICARE, SELFPAY ==
--- NOTE | ~2024-03-23 | MM_ITS ---
EXAMINATION: MM screening riana BI w kevin HISTORY: Screening TECHNIQUE: Craniocaudal and mediolateral oblique 3-D tomosynthesis images were obtained and synthetic 2-D images were generated. CAD analysis was submitted and interpreted. COMPARISON: Comparison to multiple prior studies sequentially, with oldest reviewed study dated 09/2016. BREAST PARENCHYMAL COMPOSITION: Not dense: There are scattered areas of fibroglandular density. FINDINGS: The right breast is stable without evidence for malignancy. There are developing asymmetrie s in the upper outer quadrant of the left breast. IMPRESSION: 1. Developing left breast asymmetries centered in the upper outer quadrant, middle third. 2. Additional mammographic views and possible breast ultrasound are recommended. BI-RADS Category 0: Incomplete: Needs additional imaging evaluation. Reviewed, dictated and finalized at location [facility]. IMPRESSION: 1. Developing left breast asymmetries centered in the upper outer quadrant, mid dle third. 2. Additional mammographic views and possible breast ultrasound are recommended . BI-RADS Category 0: Incomplete: Needs additional imaging evaluation.
== END 2024-03-23 12:32 ==
LOC: MICIMG 12:31
PROVIDERS: PCP Nurse Practitioner Family; Visit Provider Nurse Practitioner Family
DX: Z12.31 Encounter for screening mammogram for malignant neoplasm of breast (principal); R92.8 Other abnormal and inconclusive findings on diagnostic imaging of breast
CPT/HCPCS: 77063; 77067

== ENCOUNTER 2024-04-16 08:17 | Outpatient (CLI) | payer MEDICARE, SELFPAY ==
--- NOTE | ~2024-04-16 | MMUS_ITS ---
EXAMINATION: MM diagnostic riana LT w kevin, US breast LT limited HISTORY: Callback left breast asymmetries TECHNIQUE: Additional 3-D tomosynthesis images of the left breast were performed and synthetic 2-D im ages were generated. CAD analysis was submitted and interpreted. High resolution Limited left breast ultrasound was performed. COMPARISON: Comparison to multiple prior studies sequentially, with oldest reviewed study dated 05/2018. BREAST PARENCHYMAL COMPOSITION: Not dense: There are scattered areas of fibroglandular density. FINDINGS: MAMMOGRAPHIC FINDINGS: There are no suspicious masses, calcifications or architectural distortion in the left breast to sugg est malignancy. Focal asymmetries are less apparent with spot compression and mediolateral views. ULTRASOUND: Limited left breast ultrasound: Normal heterogeneous echotexture without focal solid or cystic mass. IMPRESSION: 1. No evidence for malignancy in the left breast. 2. Routine yearly screening mammogram and regular clinical breast examination are recommended. BI-RADS Category 1: Negative Reviewed, dictated and finalized at location [facility]. IMPRESSION: 1. No evidence for malignancy in the left breast. 2. Routine yearly screening mammogram and regular clinical breast examination a re recommended. BI-RADS Category 1: Negative
== END 2024-04-16 08:18 ==
PROVIDERS: PCP Nurse Practitioner Family; Visit Provider Nurse Practitioner Family
DX: R92.8 Other abnormal and inconclusive findings on diagnostic imaging of breast (principal)
CPT/HCPCS: 76642; 77061; 77065; G0279

== ENCOUNTER 2024-05-07 09:30 | Outpatient (RCR) | payer MEDICARE, SELFPAY ==
[2024-02-24 15:51] VITALS: PULSE 75
== END 2024-05-07 10:57 | disposition home or self-care (01) ==
LOC: ANHCPREHAB 09:30
PROVIDERS: PCP Nurse Practitioner Family; Visit Provider Internal Medicine Pulmonary Disease
DX: J44.9 Chronic obstructive pulmonary disease, unspecified (principal)
CPT/HCPCS: 94625

== ENCOUNTER 2024-05-27 12:40 | Outpatient (CLI) | payer MEDICARE, SELFPAY ==
--- NOTE | 2024-05-28 09:35 | WPDSIXMINUTE ---
Six Minute Walk Procedure Procedure Performed Pulmonary Stress Test (6 min walk) Six Minute Walk Six Minute Walk: This 6 minute walk test was carried out with the patient breathing ambient air. The pre-walk baseline oxyhemoglobin saturation was 90%. The patient walked 183 m with no stops during testing. During the walk the oxyhemoglobin saturation remained in the range of 87% to 92%. Impression: Oxyhemoglobin desaturation with activities, slightly below the 90% threshold, which might be acceptable for someone with a chronic respiratory condition. However, this determination should be made by the healthcare provider.
== END 2024-05-27 12:41 | disposition home or self-care (01) ==
LOC: ANHPFT 12:42
PROVIDERS: PCP Nurse Practitioner Family; Visit Provider Internal Medicine Pulmonary Disease
DX: J44.9 Chronic obstructive pulmonary disease, unspecified (principal)
CPT/HCPCS: 94618

== ENCOUNTER 2024-06-01 12:49 | Outpatient (CLI) | payer MEDICARE, SELFPAY ==
--- NOTE | ~2024-06-01 | CT_ITS ---
CT of the Abdomen and Pelvis: Indication: Abdominal pain Technique: 2.5 mm axial scans were obtained through the abdomen and pelvis following intravenous adm inistration of 100 cc of Omnipaque 350. Dose reduction technique was used on this scan by utilizing a utomated exposure control and iterative reconstruction technique. The dose-length product (DLP) was 3 18.24 mGy-cm. Findings: Scans through the lung bases are unremarkable. The liver, spleen, pancreas, adrenals and kidneys are within normal limits. Cholecystectomy clips are present. There are atherosclerotic calcifications of the aorta. No lymphadenopathy. No bowel obstruction or bowel wall thickening. Rectosigmoid anastomosis noted. Images through the pelvis were performed. Urinary bladder unremarkable. No pelvic mass seen. No ascit es. Impression: No acute abnormalities seen. Reviewed, dictated and finalized at [facility]. Impression: No acute abnormalities seen.
[2024-06-01 13:07] LABS: Estimated Glomerular Filt Rate > 60
== END 2024-06-01 12:50 | disposition home or self-care (01) ==
LOC: MICIMG 12:49
PROVIDERS: PCP Nurse Practitioner Family; Visit Provider Nurse Practitioner Family
DX: R10.84 Generalized abdominal pain (principal)
CPT/HCPCS: 74177; Q9967

== ENCOUNTER 2024-11-01 12:56 | Outpatient (CLI) | payer MEDICARE, SELFPAY ==
--- NOTE | ~2024-11-01 | CT_ITS ---
EXAMINATION: CT sinus wo con DATE: 11/01/2024 13:13 INDICATION: Chronic maxillary sinusitis. TECHNIQUE: Computed tomography (CT) of the paranasal sinuses was performed without intravenous contra st. Iterative reconstruction technique was employed. The dose-length product was 264.97 mGy-cm. COMPARISON: None FINDINGS: There is mild mucosal thickening in the frontal recesses. The ethmoid, sphenoid, and maxill leno sinuses are clear. There is leftward deviation of the nasal septum. The ostiomeatal units are wid kellie patent. IMPRESSION: 1. Mild mucosal thickening in the frontal recesses. 2. Leftward deviation of the nasal septum. Reviewed, dictated and finalized at location A. [employer] VEHICLE [employer]IVER
== END 2024-11-01 12:57 | disposition home or self-care (01) ==
LOC: MICIMG 12:57
PROVIDERS: PCP Nurse Practitioner Family; Visit Provider Otolaryngology
DX: J34.89 Other specified disorders of nose and nasal sinuses (principal); J34.2 Deviated nasal septum; J32.0 Chronic maxillary sinusitis; J32.2 Chronic ethmoidal sinusitis
CPT/HCPCS: 70486

== ENCOUNTER 2024-12-11 13:57 | Emergency (ER) | payer MEDICARE, SELFPAY ==
--- NOTE | ~2024-12-11 | XR_ITS ---
EXAMINATION: XR chest 1V portable Exam Date/Time: 12/11/2024 16:00 CDT HISTORY: cough Comparison: None. RESULT: Lines, tubes, and devices: None. Lungs and pleura: Clear Emphysematous change. Lordotic positioning. Cardiomediastinal silhouette: Stable. Dilated central pulmonary arteries. Other: No acute osseous or upper abdominal finding. IMPRESSION: No acute cardiopulmonary process. Reviewed, dictated and finalized at location K.
--- OUTSIDE RECORDS SUMMARY | 2024-12-11 14:00 | XMS_ITS | Clinical Summary ---
Author Organization [facility] Address [address] [place] [id number] Care Team Providers Care [employer] Executive Name Role Phone Kirill Canas MD Primary Care Provider [phone] Social History Tobacco Use Types Packs/Day Years Used Date Smoking Tobacco: Never Assessed Comments Unknown Sex and Gender Information Value Date Recorded Sex Assigned at Not on file Legal Sex Female 5:05 PM CDT Gender Identity Not on file Sexual Orientation Not on file Plan of Treatment Health Maintenance Due Date Last Done Comments Colorectal Cancer Screening Colonoscopy (10 Years) 1953 Hepatitis C 1971 DTaP, Tdap and Td Vaccines ( 1 - Tdap) 1972 Mammogram Screening 1993 Zoster Vaccines (1 of 2) 2003 Dexa Scan (General) 2018 Pneumococcal Vaccine: 65+ Ye ars (1 of 1 - PCV) 2018 COVID-19 Vaccine ( - 2023-2 5 season) 2024 Influenza Adult (#1) 2024 RSV Immunization or 60+ Years (1 - 1-dose 75+ series) 2028 Meningococcal B Vaccine Aged Out No l onger eligible based on patient's age to complete this topic Meningococcal Vaccine Aged Out No aiden lindy eligible based on patient's age to complete this topic RSV Immunizations Under 20 Months Aged Out No longer eligible based on patient's age to complete this topic Care Teams [employer] Executive Relationship Specialty Start Date End Date Kirill Canas MD PCP - General 11/18/13
--- OUTSIDE RECORDS SUMMARY | 2024-12-11 14:01 | XMS_ITS | Data Portability ---
Author Organization [facility] Nazario manda, GODFREYPE_CARDIO_CC_CCMOB [address] Address [address] [facility] [address] [place] [address] Assessment No assessment recorded. Plan of Treatment Reminders Order Date Submit Date Provider Last Modified By Organization Details Last Modified Time Details Appointments None record ed. Lab None record ed. Referral None record ed. Procedures None record ed. Surgeries None record ed. Imaging x-ray, chest 2015 016 [facility] Physician [place] Orders (For In-Office Services Only), [address] [place], [address], 6 14:32:08 Medication Orders ipratr opium 0.5 mg-alb uterol 3 mg (2.5 mg base)/ 3 mL nebuli zation soln 2015 016 [id number], [address], [place], [place], [id number], 6 11:18:30 levofl oxacin 500 mg tablet 2015 016 [facility] #[id number], [address] , [place], [place], [id number], 6 11:18:32 predni sone 50 mg tablet 2015 016 [facility] #[id number], [address], [place], [phone], 6 11:18:31 Patient TargetsNo targets recorded. Patient InstructionsNo instructions recorded. Reason for Referral None Reported. Results Created Date Observation Date Name Description Value Unit Range Abnormal Flag Note LastModifiedBy Organization Detail LastModifiedTime Result Notes None recorded. Procedures Surgical History Date Name Laterality Status Provider Name and Address Organization Details Recorded Time Tonsillectomy/Leti noidectomy completed [facility] 09/05/2016 10:19:12 Gallbladder Surgery completed [facility] 09/05/2016 10:19:22 Total Hysterectomy completed [facility] 09/05/2016 10:19:32 Caesarean Section completed [facility] 09/05/2016 10:19:49 Unlisted px meckel's dvrtclm completed [facility] 09/05/2016 10:20:00 Imaging Results None recorded. Procedure Notes None recorded. Medical Equipment None Reported. Allergies Allergen ID Allergen Name Allergen Category Reaction Reaction Severity Criticality Documentation Date Start Date Code Code System Note Provider Name and Address Organization Details Recorded Time 233255 Substance with sulfonami de structure and antibacte rial mechanism of action (substanc e) medicatio n Not available Not available Not available 09/05/2016 57813 8003 SNOMED [facility] 6 10:11:14 912129 erythromy eleuterio medicatio n Not available Not available Not available 09/05/2016 4053 RxNorm [facility] 6 10:11:35 Medications Name Sig Start Date Stop Date Status Note LastModified by Organization Details LastModified Time atorvastatin 40 mg tablet Take 1 tablet every day by oral route at bedtime. active Not Available Not Available No t Available ipratropium 0.5 mg-albuterol 3 mg (2.5 mg base)/3 mL nebulization soln USE 3 ML VIA NEBULIZER FOUR TIMES DAILY FOR 10 DAYS DIRECTED active Not Available Not Available No t Available Zyrtec 10 mg tablet Take 1 tablet every day by oral route as directed. active Not Available Not Available No t Available alprazolam 0.5 mg tablet Take 1 tablet 3 times a day by oral route as directed. active Not Available Not Available No t Available citalopram 20 mg tablet Take 1 tablet every day by oral route in the morning. active Not Available Not Available No t Available ranitidine 150 mg tablet Take 1 tablet twice a day by oral route as directed. active Not Available Not Available No t Available prednisone 50 mg tablet Take 1 tablet every day by oral route with meals for 5 days. 2015 active Not Available Not Available Not Avai lable hydrochloroth iazide 12.5 mg capsule Take 1 capsule every day by oral route in the morning. active Not Available Not Available No t Available lisinopril 5 mg tablet Take 1 tablet every day by oral route in the morning. active Not Available Not Available No t Available levofloxacin 500 mg tablet Take 1 tablet every day by oral route as directed for 10 days. 2015 active Not Available Not Available Not Avai lable magnesium once daily active Not Available Not Available Not Available Nasacort as directed active Not Available Not Available No t Available Januvia 100 mg tablet Take 1 tablet every day by oral route as directed. active Not Available Not Available No t Available bupropion HCl 150 mg tablet,12 hr sustained-rel ease(smoking deterrent) Take 1 tablet every day by oral route as directed. active Not Available Not Available No t Available Vitals Date Recorded Body height Body weight Body mass index (BMI) Heart rate Respiratory rate Body temperature Provider Name and Address Organization Details Last Updated DateTime 6 157.48 cm 95165.2 6 g 24.9 kg/m2 104 /min 16 /min 98.6 [degF] Rhina Johns [facility] 6 10:09:51 Date Recorded Systolic blood pressure Diastolic blood pressure Provider Name and Address Organization Details Last Updated DateTime 09/05/2016 110 mm[Hg] 60 mm[Hg] NUNO JENNINGS DO [address] [facility],[address], [place], [address], [facility] 09/05/2016 10:43:28 Social History Question Answer Notes LastModified by Organizat ion Details LastModified Time Tobacco Smoking Status Current Every Day Smoker Rhina martell [facility] 09/05/2016 10:18:31 What Is Your Level Of Alcohol Consumption? Occasional Information not available 09/05/2016 What Is Your Level Of Caffeine Consumption? Heavy Information not available 09/05/2016 Live Alone Or With Others? With Others Information not available 09/05/2016 Marital Status Information not available 09/05/2016 How Many Children Do You Have? 1 Information not available 09/05/2016 Sex: Unknown Functional Status Question Answer Note LastModified by Organization D etails LastModified Time Are you able to care for yourself? Yes Information n ot available 09/05/2016 Mental Status None recorded. Family History Relationship Description Onset Age of this Age Resolved Age Notes LastModified by Organization Details LastModified Time Mother Depressive disorder achesson Not available 2015 10:16:46 Mother Chronic obstructive pulmonary disease achesson Not available 2015 10:17:00 Father Diabetes mellitus achesson Not available 2015 10:17:43 Father Malignant tumor of lung 47 achesson Not available 2015 10:18:12 Medical History No medical history recorded. Gynecological History Statement/Question Response Number of pregnancies 2 Number of live births? 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 Type 2 tyler betes mellitus 23144531 E11.65 Health Concerns Section Related Observation LastModified by Organization Detai ls LastModified Time None Recorded Concern Status LastModified by Organization Details LastModified Time None Recorded Advance Directives Directive None Recorded Payers Encounter Date Sequence Insurance Name Policy Number Policy Carmona Covered Member ID Carmona Member ID Guarantor Name 09/05/2016 [employer]EE SCHEDULE - DISCOUNT Selena Ramos Notes Date Note Type Note Provider Name and Address Organization Details Recorded Time 6 text/html Hypertension ([facility])Reported bypatient.Notes:currentl y taking hydrochlorothiazide and lisinopril and well-controlledAnxiety/D epression*Reported bypatient.Notes:currentl y taking citalopram, and bupropionCough*Reported bypatient.Notes:producti ve cough x5 days. Patient was treated for pneumonia the month beforeDiabetes F/U*Reported bypatient.Notes:patient with a history of diabetes. Currently taking Januvia 100 mg dailyHyperlipidemia*Repo rted bypatient.Notes:currentl y taking atorvastatin 40 mg NUNO JENNINGS DO [address], [place], [address], [facility] [place] 09/05/2016 11:49:24 OBGyn Episode No OBEpisode recorded.
--- OUTSIDE RECORDS SUMMARY | 2024-12-11 14:01 | XMS_ITS | Data Portability ---
Author Organization [facility] Address [address] [place] [address] Care Team Providers Care Insurance Verify Rep Name Role Phone AYAKA TEJADA Primary Care Provider Assessment No assessment recorded. Plan of Treatment Reminders Order Date Submit Date Provider Last Modified By Organization Details Last Modified Time Details Appointments None recorded. Lab None recorded. Referral None recorded. Procedures None recorded. Surgeries None recorded. Imaging MAMMO, diagnostic , digital, bilateral 2015 016 [facility] Not available 6 13:41:55 U/S breast left 2015 016 eewig Not available 6 14:56:33 Medication Orders None recorded. Patient TargetsNo targets recorded. Patient InstructionsNo instructions recorded. Reason for Referral None Reported. Results Created Date Observation Date Name Description Value Unit Range Abnormal Flag Note LastModifiedBy Organization Detail LastModifiedTime 02/01/20 16 02/01/2016 U/S breas t left No observ ation record ed. [email or web address] Not Available 2015 11:43:19 Result Notes None recorded. Problems Name Problem SNOMED Code Status Onset Date Resolution Date Notes Provider Name and Address Organization Details Recorded Time Breast lump 49936976 Active Phyllis Gilmore PA-C Attn: Accounting, [address] [facility] [facility], [place], [address], [facility] 05/06/2016 13:16:18 Problem Notes None recorded. Procedures Surgical History Date Name Laterality Status Provider Name and Address Organization Details Recorded Time 02/01/20 15 Most Recent Mammogram completed Ramon Carreno [facility] 01/22/2016 10:57:38 02/02/20 14 Date of Last Pap Smear completed [facility] 01/22/2016 10:57:38 09/08/19 09 Gastrointestinal Surgery completed Ramon Carreno [facility] 01/22/2016 10:56:09 09/08/18 98 Cholecystectomy completed Ramon Carreno [facility] 01/22/20 16 10:56:09 09/08/18 97 Hysterectomy completed Ramon Carreno [facility] 01/22/2016 10:56:09 09/08/18 80 Caesarean Section completed Ramon Carreno [facility] 2015 10:56:09 09/08/18 77 Caesarean Section completed Ramon Carreno [facility] 2015 10:56:09 Imaging Results Imaging Date Name Status LastModified by Organiz ation Details LastModified Time 02/01/2016 U/S breast left completed [email or web address] Information not available 02/06/2016 11:43:19 Procedure Notes None recorded. Medical Equipment None Reported. Allergies Allergen ID Allergen Name Allergen Category Reaction Reaction Severity Criticality Documentation Date Start Date Code Code System Note Provider Name and Address Organization Details Recorded Time 45374 Substance with sulfonami de structure and antibacte rial mechanism of action (substanc e) medicatio n Not available Not available Not available 01/22/2016 94916 8003 SNOMED Not Available Not Available Not Available 30577 strawberr y allergeni c extract food Not available Not available Not available 01/22/2016 55730 4 RxNorm Not Available Not Available Not Available Medications Name Sig Start Date Stop Date Status Note LastModified by Organization Details LastModified Time Zyrtec 10 mg tablet Take 1 tablet every day by oral route. active Not Available Not Available No t Available citalopram 20 mg tablet Take 1 tablet every day by oral route. active Not Available Not Available No t Available ranitidine 150 mg tablet Take 1 tablet twice a day by oral route. active Not Available Not Available No t Available lisinopril 5 mg tablet Take 1 tablet every day by oral route. active Not Available Not Available No t Available bupropion HCl XL 150 mg 24 hr tablet, extended release Take 1 tablet every day by oral route. active Not Available Not Available No t Available Tradjenta 5 mg tablet Take 1 tablet every day by oral route. active Not Available Not Available No t Available Vitals Date Recorded Heart rate Body mass index (BMI) Body height Respiratory rate Body weight Body temperature Systolic blood pressure Diastolic blood pressure Provider Name and Address Organization Details Last Updated DateTime 6 80 /min 25.6 kg/m2 158.75 cm 20 /min 06781.9 32167 g 97.6 [degF] 130 mm[Hg] 72 mm[Hg] Ramon Carreno [facility] 6 10:59:44 Date Recorded Heart rate Body mass index (BMI) Respiratory rate Body weight Body temperature Body height Systolic blood pressure Diastolic blood pressure Provider Name and Address Organization Details Last Updated DateTime 6 84 /min 26.9 kg/m2 18 /min 47978.9 00679 g 97.8 [degF] 154.94 cm 130 mm[Hg] 72 mm[Hg] Michela Cabrera MA [facility] 6 11:32:56 Social History Question Answer Notes LastModified by Organizat ion Details LastModified Time Tobacco Smoking Status Current Every Day Smoker Michela Cabrera MA null, [facility] 05/06/2016 11:32:56 What Is Your Level Of Caffeine Consumption? Moderate Information not available 05/06/2016 Which Illicit Or Recreational Drugs Have You Used? None Information not available 05/06/2016 Hard Of Hearing Or Deaf In One Or Both Ears? No Information not available 05/06/2016 Legally Blind In One Or Both Eyes? No Information no t available 05/06/2016 Live Alone Or With Others? With Others Information not available 05/06/2016 How Many Children Do You Have? 2 [email or web address] Information not available 01/22/2016 Smoke Alarm In Home Yes Information not available 05/06/2016 How Much Tobacco Do You Smoke? No Information not available 05/06/2016 General Stress Level Low Information not available 05/06/2016 Sex: Unknown Functional Status Question Answer Note LastModified by Organization D etails LastModified Time Are you able to care for yourself? Yes Information n ot available 05/06/2016 What is your exercise level? None Information not available 05/06/2016 Mental Status None recorded. Family History Nothing Reported. Medical History Condition Response Coronary Artery Disease N Other N Atrial Fibrillation N High Blood Pressure N Thyroid Problems N Kidney or Bladder Problems N Depression N COPD N Blood Clots N GI Problems Y Skin Problems N Anemia N Heart Attack ([place]) N Diabetes Y Anxiety Disorder N Muscle, Joint, or Bone Problems N Seizures/Epilepsy N Acid Reflux (GERD) Y Cancer N Stroke N Allergies Y Asthma N High Cholesterol N Hepatitis N Liver Disease N Headaches N Osteoporosis N Heart Failure N Gynecological History Statement/Question Response Abnormal Pap N On BCP's at Conception? N STIs/STDs N Age at Menarche 8 Current Control Method Hysterectom y Most Recent Mammogram 01/31/2015 Age at First Child 22 Sexually Active? Y Menses Monthly N Date of Last Pap Smear 02/01/2014 Sexual Problems? Y Obstetrics History GPAL:G 0 P 0 0 0 0 Past Encounters Encounter ID Performer Location Encounter Start Date Encounter Closed Date Diagnosis/Indication Diagnosis SNOMED-CT Code Diagnosis ICD10 Code Diagnosis Note [id number] ARIEL Rojas (Adult Med) [address] [place] [phone] 01/22/2016 10:42:16 01/22/2016 11:46:51 Breast lump 20085890 N63 Left breast: 6 o'clock [id number] m oblong firm and mobile mass - will order diagnostic with ultrasound if needed [id number] ARIEL Rojas (Adult Med) [address] [place] [phone] 05/06/2016 11:02:24 05/06/2016 13:17:28 Breast lump 89480005 N63 Dense breasts palpated - anormality likely 2/2 fibrocysti c breasts - patient drinks lots of caffeine mammogram in 01/2016 WNL Advised patient to do monthly breast exams - if she feels anything new or changing contact Valeria at [facility] Health Concerns Section Related Observation LastModified by Organization Detai ls LastModified Time None Recorded Concern Status LastModified by Organization Details LastModified Time None Recorded Advance Directives Directive None Recorded Payers Encounter Date Sequence Insurance Name Policy Number Policy Carmona Covered Member ID Carmona Member ID Guarantor Name 01/22/[address] [facility] DEPT Selena Ramos [id number] Selena Ramos 05/06/2016 [employer] [facility] Selena Ramos [id number] Selena Ramos Notes Date Note Type Note Provider Name and Address Organization Details Recorded Time 01/22/2016 text/html Annual GYNReport ed bypatient.Menstrua l cycle:hysterectomy in 1996 Breast:No breast pain; No breast lump; No nipple discharge; no hx/o abnormal mamogram Current Contraception:Ferry gamous relationship Sexual complaints:No sexual complaints; No pain during intercourse; Normal libido Menopausal Symptoms:Inadequac y of lubrication of vaginal mucosa Preventive measures:Encourage self breast examination; Encourage regular exercise; Encourage no tobacco use; Up to date on colonoscopy screeningNotes:Sta chiqui that she has been told that she has dense breasts in the past and has had breast ultrasounds Phyllis Gilmore PA-C Attn: Accounting,[address] [place], [address], [facility] 01/22/2016 11:46:38 05/06/2016 text/html Annual GYNReport ed bypatient.Menstrua l cycle:hysterectomy in 1996 Breast:No breast pain; No breast lump; No nipple discharge; no hx/o abnormal mamogram Current Contraception:Ferry gamous relationship Sexual complaints:No sexual complaints; No pain during intercourse; Normal libido Menopausal Symptoms:Inadequac y of lubrication of vaginal mucosa Preventive measures:Encourage self breast examination; Encourage regular exercise; Encourage no tobacco use; Up to date on colonoscopy screeningNotes:Sta chiqui that she has been told that she has dense breasts in the past and has had breast ultrasounds Last breast exam we felt a firm oblong mass at the 6 o'clock position of left breast but nothing was seen on mammogram - here for f/u Phyllis Gilmore PA-C Attn: Accounting,[address] [place], [address], [facility] 05/06/2016 13:17:19 OBGyn Episode No OBEpisode recorded.
[2024-12-11 14:02] VITALS: BP 204/108; PULSE 93; RESP 20; TEMP 36.3; O2SAT 92
[2024-12-11 15:04] VITALS: O2SAT 94
--- OUTSIDE RECORDS SUMMARY | 2024-12-11 15:51 | XMS_ITS | Patient Health Record ---
Author Organization [facility] Address [address] [place] [address] Care Team Providers Care Audit Associate Name Role Phone Angeline Steen APRN Primary Care Provider Rhina Reyes Unavailable [phone] Chandra Esposito Unavailable [phone] Rosa De Anda Unavailable [phone] Migration, Provider Unavailable Unavailable Allergies Allergen (clinical drug ingredient) Drug/Non Drug Allergy documented on EMR Reaction Allergy Type Onset Date Status Substance with sulfonamide structure and antibacterial mechanism of action (substance) Sulfa Antibiotics Unknown Drug Allergy Active Results Component Value Reference Range Notes UDT Reviewed date:03/15/2024 09:22:27 PM Interpretation: Performing Lab: Notes/Report: THC neg 0 - 50 ng/ml Cocaine eg 0 - 300 ng/ml Amphetamine neg 0 - 1000 ng/ml Buprenorphine (BUP) neg 0 - 10 ng/ml Secobarbital (Bar) neg 0 - 300 ng/ml Oxazepam (BZO) pos 0 - 300 ng/ml 4-sejamxhbva-9,9-lcyiowst-0,3-diphenylpyrrolidine (RADHA P) neg 0 - 300 ng/ml Methamphetamine (MET) neg 0 - 1000 ng/ml Methylenedioxymethamphetamine (MDMA) neg 0 - 500 ng/ml Morphine (MOP 300/[id number]) neg 0 - 300 ng/ml Methadone (MTD) neg 0 - 300 ng/ml Phencyclidine (PCP) neg 0 - 25 ng/ml Nortriptyline (TCA) neg 0 - 1000 ng/ml x neg 0 - 300 ng/ml Reason For Referral No Information Medications Medication SIG (Take, Route, Frequency, Duration) Notes Start Date End Date Status Trelejennifer Ellipta 200-62.5-25 MCG/ACT INHALE 1 PUFF BY MOUTH DAILY Inhalation for 30 Days Active Lisinopril 5 MG Oral for 100 Days Active Citalopram Hydrobromide 20 MG Oral for 90 Days Active Magnesium 300 MG 1 capsule with a linnea l Orally Once a day Active Calcium + D 500-1000-40 MG-UNT-MCG as directed Orally Active busPIRone HCl 10 MG TAKE 1 TABLET BY TABITHA TWICE DAILY Oral for 30 Days Active Doxycycline 40 MG 1 capsule in the mor dick on an empty stomach Orally Once a day Active Atorvastatin Calcium 20 MG Oral for 100 Days Active Omeprazole 40 MG Oral for 100 Days Active Vitamin B12 100 MCG as directed Orally Active ALPRAZolam 0.5 MG Oral for 30 Days Active Social History Tobacco Use: Social History Observation Description Date Details (start date - stop date) Current Smoker 03/12/1971 - NA Sex Assigned At : Social History Observation Description Sex Assigned At Female Tobacco Control (Standard) Question Answer Notes Tobacco use: Current smoker When did you start smoking? 03/12/1971 How often do you smoke cigarettes? Every day How many cigarettes a day do you smoke? 6-10 How soon after you wake up do you smoke your fir st cigarette? Within 5 minutes AUDIT-C (Standard) Question Answer Notes Did you have a drink containing alcohol in the p ast year? No Section Notes: Lives in [place], with hus band of 50 yrs. 2 children (one living, one March 2011). Grew up local. 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 Lives in [place], with hus band of 50 yrs. 2 children (one living, one March 2011). Grew up local. 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 Lives in [place], with hus band of 50 yrs. 2 children (one living, one March 2011). Grew up local. 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 Lives in [place], with hus band of 50 yrs. 2 children (one living, one March 2011). Grew up local. 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 Problems Problem Type SNOMED Code ICD Code Onset Dates Problem Status W/U Status Risk Notes Problem Severe recurrent major depression without psychotic features (23585062) Major depressive disorder, recurrent severe without psychotic features (F33.2) Active confirmed Problem Generalized anxiety disorder (25827455) Generalized anxiety disorder (F41.1) Active confirmed Problem 06145693 PTSD (post-traumatic stress disorder) (F43.10) Active confirmed Problem Panic disorder (014385178) Panic attacks (F41.0) Active confirmed Problem Mild recurrent major depression (31618743) Mild recurrent major depression (F33.0) Active confirmed Problem Current smoker (33131422) Current smoker (F17.200) Active confirmed Vital Signs Heart Rate 78 /min 08/11/2024 Height-cm 152.4 cm 08/11/2024 Blood pressure diastolic 72 mm Hg 08/11/2024 Weight-kg 54.88 kg 08/11/2024 Height 60 in 08/11/2024 Blood pressure systolic 152 mm Hg 08/11/2024 Weight 121 lbs 08/11/2024 BMI 23.63 kg/m2 08/11/2024 Encounters Encounter Location Date Provider Diagnosis [place] [address] [address] 03/10/2024 Rosa De Anda Generalized anxiety disorder F41.1 ; Panic attacks F41.0 and Mild recurrent major depression F33.[address] [address] 05/11/2024 Rhina Hemann Generalized anxiety disorder F41.1 and Mild recurrent major depression F33.[address] [address] 05/26/2024 Rhina Hemann Generalized anxiety disorder F41.1 ; Mild recurrent major depression F33.0 and Panic attacks F41.0 [place] [id number] [facility] [address] [address] 06/10/2024 Rhina Hemann Generalized anxiety disorder F41.1 ; PTSD (post-traumatic stress disorder) F43.10 ; Mild recurrent major depression F33.0 and Panic attacks F41.0 [place] [address] [address] 06/21/2024 Rosa De Anda Generalized anxiety disorder F41.1 ; Current smoker F17.200 ; Panic attacks F41.0 and Mild recurrent major depression F33.0 [facility] [address] [place] [address] 06/28/2024 Chandra Cate Generalized anxiety disorder F41.1 ; Current smoker F17.200 ; Panic attacks F41.0 and Mild recurrent major depression F33.0 [facility] [address] [place] [address] 07/05/2024 Chandra Cate Current smoker F17.200 [facility] [address] [place] [address] 07/06/2024 Chandra Cate Current smoker F17.200 [facility] [address] [place] [address] 07/07/2024 Chandra Cate Current smoker F17.200 [facility] [address] [place] [address] 07/08/2024 Chandra Cate Current smoker F17.200 [facility] [address] [place] [address] 07/09/2024 Chandra Cate Smoking F17.200 [facility] [address] [place] [address] 07/12/2024 Chandra Cate Current smoker F17.200 [facility] [address] [place] [address] 07/13/2024 Chandra Cate Current smoker F17.200 [facility] [address] [place] [address] 07/14/2024 Chandra Cate Current smoker F17.200 [facility] [address] [place] [address] 07/15/2024 Chandra Cate Current smoker F17.200 [facility] [address] [place] [address] 07/16/2024 Chandra Cate Current smoker F17.200 [facility] [address] [place] [address] 07/19/2024 Chandra Cate Current smoker F17.200 [facility] [address] [place] [address] 07/20/2024 Chandra Cate Current smoker F17.200 [facility], [facility] [address] [place] [address] 07/21/2024 Chandra Cate Current smoker F17.200 [facility] [address] [place] [address] 07/22/2024 Chandra Cate Current smoker F17.200 [facility], [facility] [address] [place] [address] 07/22/2024 Chandra Cate Generalized anxiety disorder F41.1 ; Current smoker F17.200 ; Panic attacks F41.0 and Mild recurrent major depression F33.0 [facility] [address] [place] [address] 07/23/2024 Chandra Cate Current smoker F17.200 [facility] [address] [place] [address] 07/28/2024 Chandra Cate Current smoker F17.200 [facility] [address] [place] [address] 07/28/2024 Chandra Cate Generalized anxiety disorder F41.1 ; Current smoker F17.200 ; Panic attacks F41.0 ; Mild recurrent major depression F33.0 and Hypertension, unspecified type 401.9 [facility] [address] [place] [address] 08/04/2024 Chandra Cate Current smoker F17.200 [facility] [address] [place] [address] 08/11/2024 Chandra Cate Current smoker F17.200 [facility], [facility] [address] [place] [address] 08/11/2024 Chandra Cate Current smoker F17.200 and Mild recurrent major depression F33.0 [facility], [facility] [address] [place] [address] 01/12/2024 Provider Migration [facility], [facility] [address] [place] [address] 01/24/2024 Provider Migration [facility], [facility] [address] [place] [address] 01/25/2024 Provider Migration [facility] [address] [place] [address] 03/19/2024 Rosa De Anda [facility] [employer] [facility] [address] [place] [address] 07/22/2024 Assessments Encounter Date Diagnosis (ICD Code) Assessment Notes Treatment Notes Treatment Clinical Notes Section Notes 03/10/2024 Generalized anxiety disorder (ICD-10 - F41.1) monitor cont citalopram 20mg daily cont buspar 10mg BID cont xanax 0.5mg prn-recommend minimize use -from PCP currently refer to therapy Dx: JAYASHREE, mild mdd, panic attacks on portable O2 UDS +BZO PDMP: alprazolam 0.5mg: filled #60 March (per Ivette Tuttle) and October (per Angeline Steen since Oct), then in November increased to #90 and filling monthly discuss dx and tx considerations. seems sx were worse due to unrealized pneumonia/diffi culty breathing, etc. and has significantly improved since treated. caution bzo, recommend work back towards only occasional, risks with correction use, plus impaired lungs, given [facility] BZO risks handout. pt v/u if needing bzo often, then may need to change celexa. but doing better now, so she would rather keep it the same, deal with all her lung issues, and if still issues at 6 months, might be willing to change she is going to keep meds with PCP for now, and then if issues worsen or do not continue to improve, may call for earlier appt and change recommend therapy-thinks would benefit; refer first avail, prefers female f/u 3-4 months, she may cancel if doing well. 03/10/2024 Panic attacks (ICD-10 - F41.0) seems increased with sx of health exacerbation, have resolved meds, therapy as above 06/10/2024 Generalized anxiety disorder (ICD-10 - F41.1) 06/10/2024 PTSD (post-traumat ic stress disorder) (ICD-10 - F43.10) 05/11/2024 Generalized anxiety disorder (ICD-10 - F41.1) 05/11/2024 Mild recurrent major depression (ICD-10 - F33.0) 05/26/2024 Generalized anxiety disorder (ICD-10 - F41.1) 06/21/2024 Generalized anxiety disorder (ICD-10 - F41.1) per PCP: -citalopram 20mg daily -buspar 10mg BID -xanax 0.5mg prn-recommend minimize use (PDMP-filling #90 about every 6 wks from Nae Steen) cont therapy SLUMS today , no impairment PCP managing medication currently, she does not want changes, cont with PCP interested in TMS for smoking, denies C/I-see HPI. overview of treatment pros/cons. Will have schedule appt with Dr Esposito for intake 06/21/2024 Current smoker (ICD-10 - F17.200) refer to Dr Esposito for TMS for smoking cessation 06/28/2024 Generalized anxiety disorder (ICD-10 - F41.1) Anxiety and Depression - Assessment: Patient has a history of panic attacks, unresolved grief over the loss of her daughter, and issues with her late mother. Currently on Citalopram 20 mg, boosted by 10 mg twice a day, managed by primary care physician Dr. Angeline Steen. Reports feeling better with intermittent depressive episodes. Patient has been seeing Rashad for about 6 weeks. - Plan: - Continue current medication regimen. - Encourage patient to maintain open communication with primary care physician regarding any changes in symptoms or medication side effects. - Consider referral to therapy or support groups for grief and unresolved issues with late mother if needed. Tobacco Use Disorder - Assessment: Patient currently smokes half a pack per day, down from a pack. Has previously quit for extended periods (5, 6, and 7 years) using hypnosis. Interested in Transcranial Magnetic Stimulation (TMS) for smoking cessation. - Plan: - Educate patient on TMS procedure, risks, and potential outcomes. - Schedule TMS treatment to begin after the completion of the patient's antibiotic course. - Monitor patient's progress and response to TMS treatment. - Encourage patient to set a quit date by the 10th TMS treatment session. - Discuss possibility of using nicotine gum if needed, especially for weekends. Current Antibiotic Treatment - Assessment: Patient is on a 7-day course of antibiotics, started yesterday. - Plan: - Ensure completion of the antibiotic course. - Monitor for any side effects or complications related to the antibiotic treatment. - Begin TMS treatment after the completion of the antibiotic course, tentatively next Friday. TMS Treatment Preparation - Assessment: Patient has hearing aids and uses hair gel. No cochlear implants, metal in head, tongue rings, or nose rings. - Plan: - Instruct patient to remove hearing aids before TMS treatment to avoid magnetization. - Advise patient to towel dry hair before treatment; hair gel should not be an issue. - Inform patient about potential side effects: numbing of the face, twitching, and teary eyes. Insurance and Consent for TMS - Assessment: Patient inquired about payment and insurance reimbursement for TMS treatment. - Plan: - Provide patient with a consent form for TMS treatment, outlining risks and potential side effects. - Discuss payment options and insurance reimbursement process with the patient. - Explain upfront payment option with potential insurance reimbursement later. 07/05/2024 Current smoker (ICD-10 - F17.200) 07/06/2024 Current smoker (ICD-10 - F17.200) 07/07/2024 Current smoker (ICD-10 - F17.200) 07/08/2024 Current smoker (ICD-10 - F17.200) 07/09/2024 Smoking (ICD-10 - F17.200) 07/12/2024 Current smoker (ICD-10 - F17.200) 07/13/2024 Current smoker (ICD-10 - F17.200) 07/14/2024 Current smoker (ICD-10 - F17.200) 07/15/2024 Current smoker (ICD-10 - F17.200) 07/16/2024 Current smoker (ICD-10 - F17.200) 07/19/2024 Current smoker (ICD-10 - F17.200) 07/20/2024 Current smoker (ICD-10 - F17.200) 07/21/2024 Current smoker (ICD-10 - F17.200) 07/22/2024 Current smoker (ICD-10 - F17.200) 07/22/2024 Generalized anxiety disorder (ICD-10 - F41.1) ( ) If you are thinking about quitting smoking and would like some help, a quitline might be just what you need to succeed. Quitlines provide free coachingover the phoneto help you quit smoking. When you call 6-241-MGSU-NOW , you can speak confidentially with a highly trained quit college sports coach. Tobacco Use Disorder - Assessment: Patient is currently smoking 6 cigarettes per day, down from 12 per day. They have difficulty quitting due to cravings and habituation. Patient has Chantix at home but has not started it yet due to concerns about gastrointestinal side effects. They report enjoying the smell and taste of cigarettes. Patient has completed 13 out of 18 treatments of an unspecified smoking cessation program. - Plan: - Encourage the patient to start Chantix at 0.5 mg daily for three days, then increase to 0.5 mg twice daily, and monitor for tolerance before increasing to 1 mg. - Schedule a follow-up appointment next week to assess progress and tolerance of Chantix. - Recommend the patient to call 8-586-XOMU-NOW for counseling and support during cravings. - Encourage the patient to create a list of alternative activities to distract from cravings, such as walking, doing dishes, or calling a friend. - Discuss the possibility of using non-nicotine vapes as an alternative to smoking, if the patient is interested. Habitual Smoking as a Reward - Assessment: Patient uses smoking as a reward after completing tasks, such as mopping the kitchen floor or having a cup of coffee. They report feeling unsatisfied without a cigarette after meals. - Plan: - Encourage the patient to find alternative rewards or activities to replace smoking, such as enjoying a healthy snack or engaging in a hobby. - Monitor progress in breaking the habit of using smoking as a reward during follow-up appointments. Smoking Triggers - Assessment: Patient identified specific triggers: smoking immediately after waking up, after meals, and while talking on the phone. - Plan: - Discuss strategies to manage these specific triggers, such as delaying the first cigarette of the day or finding alternative activities to do after meals. - Encourage the patient to continue efforts to break routines, such as waiting 15 minutes before smoking when the urge arises. 07/23/2024 Current smoker (ICD-10 - F17.200) 07/28/2024 Current smoker (ICD-10 - F17.200) 07/28/2024 Generalized anxiety disorder (ICD-10 - F41.1) Smoking Cessation - Assessment: Patient reports a reduction in cigarette consumption from half a pack to 2-3 cigarettes per day. Currently on Chantix, with the full dose starting tomorrow. Experiencing mild stomach discomfort and sleep disturbances as potential side effects of Chantix. Has not utilized the 9-313-YIAN-SMOKING resource, but remembered it during the visit. Using a non-nicotine vape and sugar-free menthol cough drops as substitutes. Patient reports constant thoughts about smoking and feeling conflicted. Had a dream about people offering cigarettes, indicating ongoing psychological struggle. - Plan: - Continue Chantix as prescribed, monitor for side effects, and adjust dosage if necessary. - Encourage the patient to utilize the 0-123-QTUP-SMOKING resource for additional support. - Continue using non-nicotine vape and sugar-free menthol cough drops as substitutes. - Schedule a follow-up appointment in 2 weeks to assess progress and provide further support. If issues arise, the patient may return for an earlier appointment. - Obtain vitals during the next visit, as they have not been recorded recently. Anxiety - Assessment: Patient reports feeling nervous without a specific reason. - Plan: - Monitor patient's anxiety levels during the smoking cessation process. - Consider referral to a mental health professional if anxiety persists or worsens. 08/04/2024 Current smoker (ICD-10 - F17.200) 08/11/2024 Current smoker (ICD-10 - F17.200) 08/11/2024 Mild recurrent major depression (ICD-10 - F33.0) Nicotine Dependence and Smoking Cessation - Assessment: Patient has reduced smoking from half a pack to 4 cigarettes a day. TMS was not effective for smoking cessation. Chantix was initiated, but patient still experiences cravings. No side effects from Chantix reported. Patient takes a few puffs and puts the cigarette back, not finishing them all at once. Patient is experiencing some irritability. - Plan: Continue Chantix as tolerated. Encourage patient to gradually reduce the number of cigarettes smoked per day. Consider alternative smoking cessation strategies if Chantix is not effective. Depression - Assessment: Stable at the time of the visit. - Plan: Continue current treatment regimen. Monitor for any changes in mood or depressive symptoms. Chronic Obstructive Pulmonary Disease (COPD) - Assessment: Severe COPD with continued smoking despite medical issues. - Plan: Encourage smoking cessation to prevent further exacerbation of COPD. Ensure patient is compliant with prescribed COPD medications. Schedule regular follow-ups with primary care physician for monitoring and management. Hypertension - Assessment: Underlying hypertension noted. - Plan: Monitor blood pressure regularly. Ensure patient is compliant with prescribed antihypertensive medications. Encourage lifestyle modifications, including a healthy diet, regular exercise, and smoking cessation. Cognitive Function - Assessment: No cognitive impairment observed. Functional status has been stable. - Plan: Continue to monitor cognitive function during future visits. Encourage patient to engage in activities that promote cognitive health, such as mental exercises and social interactions. Follow-up Care - Assessment: Patient is under care of her primary care physician for further treatment. - Plan: Coordinate care with primary care physician. Ensure proper communication of treatment plans and progress. 08/11/2024 Current smoker (ICD-10 - F17.200) Nicotine Dependence and Smoking Cessation - Assessment: Patient has reduced smoking from half a pack to 4 cigarettes a day. TMS was not effective for smoking cessation. Chantix was initiated, but patient still experiences cravings. No side effects from Chantix reported. Patient takes a few puffs and puts the cigarette back, not finishing them all at once. Patient is experiencing some irritability. - Plan: Continue Chantix as tolerated. Encourage patient to gradually reduce the number of cigarettes smoked per day. Consider alternative smoking cessation strategies if Chantix is not effective. Depression - Assessment: Stable at the time of the visit. - Plan: Continue current treatment regimen. Monitor for any changes in mood or depressive symptoms. Chronic Obstructive Pulmonary Disease (COPD) - Assessment: Severe COPD with continued smoking despite medical issues. - Plan: Encourage smoking cessation to prevent further exacerbation of COPD. Ensure patient is compliant with prescribed COPD medications. Schedule regular follow-ups with primary care physician for monitoring and management. Hypertension - Assessment: Underlying hypertension noted. - Plan: Monitor blood pressure regularly. Ensure patient is compliant with prescribed antihypertensive medications. Encourage lifestyle modifications, including a healthy diet, regular exercise, and smoking cessation. Cognitive Function - Assessment: No cognitive impairment observed. Functional status has been stable. - Plan: Continue to monitor cognitive function during future visits. Encourage patient to engage in activities that promote cognitive health, such as mental exercises and social interactions. Follow-up Care - Assessment: Patient is under care of her primary care physician for further treatment. - Plan: Coordinate care with primary care physician. Ensure proper communication of treatment plans and progress. 06/28/2024 Current smoker (ICD-10 - F17.200) Anxiety and Depression - Assessment: Patient has a history of panic attacks, unresolved grief over the loss of her daughter, and issues with her late mother. Currently on Citalopram 20 mg, boosted by 10 mg twice a day, managed by primary care physician Dr. Angeline Steen. Reports feeling better with intermittent depressive episodes. Patient has been seeing Rashad for about 6 weeks. - Plan: - Continue current medication regimen. - Encourage patient to maintain open communication with primary care physician regarding any changes in symptoms or medication side effects. - Consider referral to therapy or support groups for grief and unresolved issues with late mother if needed. Tobacco Use Disorder - Assessment: Patient currently smokes half a pack per day, down from a pack. Has previously quit for extended periods (5, 6, and 7 years) using hypnosis. Interested in Transcranial Magnetic Stimulation (TMS) for smoking cessation. - Plan: - Educate patient on TMS procedure, risks, and potential outcomes. - Schedule TMS treatment to begin after the completion of the patient's antibiotic course. - Monitor patient's progress and response to TMS treatment. - Encourage patient to set a quit date by the 10th TMS treatment session. - Discuss possibility of using nicotine gum if needed, especially for weekends. Current Antibiotic Treatment - Assessment: Patient is on a 7-day course of antibiotics, started yesterday. - Plan: - Ensure completion of the antibiotic course. - Monitor for any side effects or complications related to the antibiotic treatment. - Begin TMS treatment after the completion of the antibiotic course, tentatively next Friday. TMS Treatment Preparation - Assessment: Patient has hearing aids and uses hair gel. No cochlear implants, metal in head, tongue rings, or nose rings. - Plan: - Instruct patient to remove hearing aids before TMS treatment to avoid magnetization. - Advise patient to towel dry hair before treatment; hair gel should not be an issue. - Inform patient about potential side effects: numbing of the face, twitching, and teary eyes. Insurance and Consent for TMS - Assessment: Patient inquired about payment and insurance reimbursement for TMS treatment. - Plan: - Provide patient with a consent form for TMS treatment, outlining risks and potential side effects. - Discuss payment options and insurance reimbursement process with the patient. - Explain upfront payment option with potential insurance reimbursement later. 07/22/2024 Current smoker (ICD-10 - F17.200) ( ) If you are thinking about quitting smoking and would like some help, a quitline might be just what you need to succeed. Quitlines provide free coachingover the phoneto help you quit smoking. When you call , you can speak confidentially with a highly trained quit college sports coach. ( ) If you are thinking about quitting smoking and would like some help, a quitline might be just what you need to succeed. Quitlines provide free coachingover the phoneto help you quit smoking. When you call , you can speak confidentially with a highly trained quit college sports coach. Tobacco Use Disorder - Assessment: Patient is currently smoking 6 cigarettes per day, down from 12 per day. They have difficulty quitting due to cravings and habituation. Patient has Chantix at home but has not started it yet due to concerns about gastrointestinal side effects. They report enjoying the smell and taste of cigarettes. Patient has completed 13 out of 18 treatments of an unspecified smoking cessation program. - Plan: - Encourage the patient to start Chantix at 0.5 mg daily for three days, then increase to 0.5 mg twice daily, and monitor for tolerance before increasing to 1 mg. - Schedule a follow-up appointment next week to assess progress and tolerance of Chantix. - Recommend the patient to call for counseling and support during cravings. - Encourage the patient to create a list of alternative activities to distract from cravings, such as walking, doing dishes, or calling a friend. - Discuss the possibility of using non-nicotine vapes as an alternative to smoking, if the patient is interested. Habitual Smoking as a Reward - Assessment: Patient uses smoking as a reward after completing tasks, such as mopping the kitchen floor or having a cup of coffee. They report feeling unsatisfied without a cigarette after meals. - Plan: - Encourage the patient to find alternative rewards or activities to replace smoking, such as enjoying a healthy snack or engaging in a hobby. - Monitor progress in breaking the habit of using smoking as a reward during follow-up appointments. Smoking Triggers - Assessment: Patient identified specific triggers: smoking immediately after waking up, after meals, and while talking on the phone. - Plan: - Discuss strategies to manage these specific triggers, such as delaying the first cigarette of the day or finding alternative activities to do after meals. - Encourage the patient to continue efforts to break routines, such as waiting 15 minutes before smoking when the urge arises. 07/28/2024 Current smoker (ICD-10 - F17.200) ( ) If you are thinking about quitting smoking and would like some help, a quitline might be just what you need to succeed. Quitlines provide free coachingover the phoneto help you quit smoking. When you call [employer] , you can speak confidentially with a highly trained quit college sports coach. Smoking Cessation - Assessment: Patient reports a reduction in cigarette consumption from half a pack to 2-3 cigarettes per day. Currently on Chantix, with the full dose starting tomorrow. Experiencing mild stomach discomfort and sleep disturbances as potential side effects of Chantix. Has not utilized the [employer] [facility] resource, but remembered it during the visit. Using a non-nicotine vape and sugar-free menthol cough drops as substitutes. Patient reports constant thoughts about smoking and feeling conflicted. Had a dream about people offering cigarettes, indicating ongoing psychological struggle. - Plan: - Continue Chantix as prescribed, monitor for side effects, and adjust dosage if necessary. - Encourage the patient to utilize the [employer] [facility] resource for additional support. - Continue using non-nicotine vape and sugar-free menthol cough drops as substitutes. - Schedule a follow-up appointment in 2 weeks to assess progress and provide further support. If issues arise, the patient may return for an earlier appointment. - Obtain vitals during the next visit, as they have not been recorded recently. Anxiety - Assessment: Patient reports feeling nervous without a specific reason. - Plan: - Monitor patient's anxiety levels during the smoking cessation process. - Consider referral to a mental health professional if anxiety persists or worsens. 06/21/2024 Panic attacks (ICD-10 - F41.0) rare-usually related to breathing meds per PCP, therapy as above 05/26/2024 Mild recurrent major depression (ICD-10 - F33.0) 06/10/2024 Mild recurrent major depression (ICD-10 - F33.0) 03/10/2024 Mild recurrent major depression (ICD-10 - F33.0) mild, manageable, monitor meds, therapy as above 06/10/2024 Panic attacks (ICD-10 - F41.0) 05/26/2024 Panic attacks (ICD-10 - F41.0) 06/21/2024 Mild recurrent major depression (ICD-10 - F33.0) meds per PCP, therapy as above 06/28/2024 Panic attacks (ICD-10 - F41.0) Anxiety and Depression - Assessment: Patient has a history of panic attacks, unresolved grief over the loss of her daughter, and issues with her late mother. Currently on Citalopram 20 mg, boosted by 10 mg twice a day, managed by primary care physician Dr. Angeline Steen. Reports feeling better with intermittent depressive episodes. Patient has been seeing Rashad for about 6 weeks. - Plan: - Continue current medication regimen. - Encourage patient to maintain open communication with primary care physician regarding any changes in symptoms or medication side effects. - Consider referral to therapy or support groups for grief and unresolved issues with late mother if needed. Tobacco Use Disorder - Assessment: Patient currently smokes half a pack per day, down from a pack. Has previously quit for extended periods (5, 6, and 7 years) using hypnosis. Interested in Transcranial Magnetic Stimulation (TMS) for smoking cessation. - Plan: - Educate patient on TMS procedure, risks, and potential outcomes. - Schedule TMS treatment to begin after the completion of the patient's antibiotic course. - Monitor patient's progress and response to TMS treatment. - Encourage patient to set a quit date by the 10th TMS treatment session. - Discuss possibility of using nicotine gum if needed, especially for weekends. Current Antibiotic Treatment - Assessment: Patient is on a 7-day course of antibiotics, started yesterday. - Plan: - Ensure completion of the antibiotic course. - Monitor for any side effects or complications related to the antibiotic treatment. - Begin TMS treatment after the completion of the antibiotic course, tentatively next Friday. TMS Treatment Preparation - Assessment: Patient has hearing aids and uses hair gel. No cochlear implants, metal in head, tongue rings, or nose rings. - Plan: - Instruct patient to remove hearing aids before TMS treatment to avoid magnetization. - Advise patient to towel dry hair before treatment; hair gel should not be an issue. - Inform patient about potential side effects: numbing of the face, twitching, and teary eyes. Insurance and Consent for TMS - Assessment: Patient inquired about payment and insurance reimbursement for TMS treatment. - Plan: - Provide patient with a consent form for TMS treatment, outlining risks and potential side effects. - Discuss payment options and insurance reimbursement process with the patient. - Explain upfront payment option with potential insurance reimbursement later. 07/22/2024 Panic attacks (ICD-10 - F41.0) ( ) If you are thinking about quitting smoking and would like some help, a quitline might be just what you need to succeed. Quitlines provide free coachingover the phoneto help you quit smoking. When you call 7-318-YKFG-NOW , you can speak confidentially with a highly trained quit college sports coach. Tobacco Use Disorder - Assessment: Patient is currently smoking 6 cigarettes per day, down from 12 per day. They have difficulty quitting due to cravings and habituation. Patient has Chantix at home but has not started it yet due to concerns about gastrointestinal side effects. They report enjoying the smell and taste of cigarettes. Patient has completed 13 out of 18 treatments of an unspecified smoking cessation program. - Plan: - Encourage the patient to start Chantix at 0.5 mg daily for three days, then increase to 0.5 mg twice daily, and monitor for tolerance before increasing to 1 mg. - Schedule a follow-up appointment next week to assess progress and tolerance of Chantix. - Recommend the patient to call 7-900-SMYA-NOW for counseling and support during cravings. - Encourage the patient to create a list of alternative activities to distract from cravings, such as walking, doing dishes, or calling a friend. - Discuss the possibility of using non-nicotine vapes as an alternative to smoking, if the patient is interested. Habitual Smoking as a Reward - Assessment: Patient uses smoking as a reward after completing tasks, such as mopping the kitchen floor or having a cup of coffee. They report feeling unsatisfied without a cigarette after meals. - Plan: - Encourage the patient to find alternative rewards or activities to replace smoking, such as enjoying a healthy snack or engaging in a hobby. - Monitor progress in breaking the habit of using smoking as a reward during follow-up appointments. Smoking Triggers - Assessment: Patient identified specific triggers: smoking immediately after waking up, after meals, and while talking on the phone. - Plan: - Discuss strategies to manage these specific triggers, such as delaying the first cigarette of the day or finding alternative activities to do after meals. - Encourage the patient to continue efforts to break routines, such as waiting 15 minutes before smoking when the urge arises. 07/28/2024 Panic attacks (ICD-10 - F41.0) Smoking Cessation - Assessment: Patient reports a reduction in cigarette consumption from half a pack to 2-3 cigarettes per day. Currently on Chantix, with the full dose starting tomorrow. Experiencing mild stomach discomfort and sleep disturbances as potential side effects of Chantix. Has not utilized the 7-079-IQEY-SMOKING resource, but remembered it during the visit. Using a non-nicotine vape and sugar-free menthol cough drops as substitutes. Patient reports constant thoughts about smoking and feeling conflicted. Had a dream about people offering cigarettes, indicating ongoing psychological struggle. - Plan: - Continue Chantix as prescribed, monitor for side effects, and adjust dosage if necessary. - Encourage the patient to utilize the 1-957-XSPS-SMOKING resource for additional support. - Continue using non-nicotine vape and sugar-free menthol cough drops as substitutes. - Schedule a follow-up appointment in 2 weeks to assess progress and provide further support. If issues arise, the patient may return for an earlier appointment. - Obtain vitals during the next visit, as they have not been recorded recently. Anxiety - Assessment: Patient reports feeling nervous without a specific reason. - Plan: - Monitor patient's anxiety levels during the smoking cessation process. - Consider referral to a mental health professional if anxiety persists or worsens. 07/28/2024 Mild recurrent major depression (ICD-10 - F33.0) Smoking Cessation - Assessment: Patient reports a reduction in cigarette consumption from half a pack to 2-3 cigarettes per day. Currently on Chantix, with the full dose starting tomorrow. Experiencing mild stomach discomfort and sleep disturbances as potential side effects of Chantix. Has not utilized the 1-174-YXAF-SMOKING resource, but remembered it during the visit. Using a non-nicotine vape and sugar-free menthol cough drops as substitutes. Patient reports constant thoughts about smoking and feeling conflicted. Had a dream about people offering cigarettes, indicating ongoing psychological struggle. - Plan: - Continue Chantix as prescribed, monitor for side effects, and adjust dosage if necessary. - Encourage the patient to utilize the 8-010-KZQD-SMOKING resource for additional support. - Continue using non-nicotine vape and sugar-free menthol cough drops as substitutes. - Schedule a follow-up appointment in 2 weeks to assess progress and provide further support. If issues arise, the patient may return for an earlier appointment. - Obtain vitals during the next visit, as they have not been recorded recently. Anxiety - Assessment: Patient reports feeling nervous without a specific reason. - Plan: - Monitor patient's anxiety levels during the smoking cessation process. - Consider referral to a mental health professional if anxiety persists or worsens. 07/22/2024 Mild recurrent major depression (ICD-10 - F33.0) ( ) If you are thinking about quitting smoking and would like some help, a quitline might be just what you need to succeed. Quitlines provide free coachingover the phoneto help you quit smoking. When you call 2-872-PUYQ-NOW , you can speak confidentially with a highly trained quit college sports coach. Tobacco Use Disorder - Assessment: Patient is currently smoking 6 cigarettes per day, down from 12 per day. They have difficulty quitting due to cravings and habituation. Patient has Chantix at home but has not started it yet due to concerns about gastrointestinal side effects. They report enjoying the smell and taste of cigarettes. Patient has completed 13 out of 18 treatments of an unspecified smoking cessation program. - Plan: - Encourage the patient to start Chantix at 0.5 mg daily for three days, then increase to 0.5 mg twice daily, and monitor for tolerance before increasing to 1 mg. - Schedule a follow-up appointment next week to assess progress and tolerance of Chantix. - Recommend the patient to call [facility] for counseling and support during cravings. - Encourage the patient to create a list of alternative activities to distract from cravings, such as walking, doing dishes, or calling a friend. - Discuss the possibility of using non-nicotine vapes as an alternative to smoking, if the patient is interested. Habitual Smoking as a Reward - Assessment: Patient uses smoking as a reward after completing tasks, such as mopping the kitchen floor or having a cup of coffee. They report feeling unsatisfied without a cigarette after meals. - Plan: - Encourage the patient to find alternative rewards or activities to replace smoking, such as enjoying a healthy snack or engaging in a hobby. - Monitor progress in breaking the habit of using smoking as a reward during follow-up appointments. Smoking Triggers - Assessment: Patient identified specific triggers: smoking immediately after waking up, after meals, and while talking on the phone. - Plan: - Discuss strategies to manage these specific triggers, such as delaying the first cigarette of the day or finding alternative activities to do after meals. - Encourage the patient to continue efforts to break routines, such as waiting 15 minutes before smoking when the urge arises. 06/28/2024 Mild recurrent major depression (ICD-10 - F33.0) Anxiety and Depression - Assessment: Patient has a history of panic attacks, unresolved grief over the loss of her daughter, and issues with her late mother. Currently on Citalopram 20 mg, boosted by 10 mg twice a day, managed by primary care physician Dr. Angeline Steen. Reports feeling better with intermittent depressive episodes. Patient has been seeing Rashad for about 6 weeks. - Plan: - Continue current medication regimen. - Encourage patient to maintain open communication with primary care physician regarding any changes in symptoms or medication side effects. - Consider referral to therapy or support groups for grief and unresolved issues with late mother if needed. Tobacco Use Disorder - Assessment: Patient currently smokes half a pack per day, down from a pack. Has previously quit for extended periods (5, 6, and 7 years) using hypnosis. Interested in Transcranial Magnetic Stimulation (TMS) for smoking cessation. - Plan: - Educate patient on TMS procedure, risks, and potential outcomes. - Schedule TMS treatment to begin after the completion of the patient's antibiotic course. - Monitor patient's progress and response to TMS treatment. - Encourage patient to set a quit date by the 10th TMS treatment session. - Discuss possibility of using nicotine gum if needed, especially for weekends. Current Antibiotic Treatment - Assessment: Patient is on a 7-day course of antibiotics, started yesterday. - Plan: - Ensure completion of the antibiotic course. - Monitor for any side effects or complications related to the antibiotic treatment. - Begin TMS treatment after the completion of the antibiotic course, tentatively next Friday. TMS Treatment Preparation - Assessment: Patient has hearing aids and uses hair gel. No cochlear implants, metal in head, tongue rings, or nose rings. - Plan: - Instruct patient to remove hearing aids before TMS treatment to avoid magnetization. - Advise patient to towel dry hair before treatment; hair gel should not be an issue. - Inform patient about potential side effects: numbing of the face, twitching, and teary eyes. Insurance and Consent for TMS - Assessment: Patient inquired about payment and insurance reimbursement for TMS treatment. - Plan: - Provide patient with a consent form for TMS treatment, outlining risks and potential side effects. - Discuss payment options and insurance reimbursement process with the patient. - Explain upfront payment option with potential insurance reimbursement later. 07/28/2024 Hypertension, unspecified type (ICD9-CM - 401.9) Smoking Cessation - Assessment: Patient reports a reduction in cigarette consumption from half a pack to 2-3 cigarettes per day. Currently on Chantix, with the full dose starting tomorrow. Experiencing mild stomach discomfort and sleep disturbances as potential side effects of Chantix. Has not utilized the [employer] resource, but remembered it during the visit. Using a non-nicotine vape and sugar-free menthol cough drops as substitutes. Patient reports constant thoughts about smoking and feeling conflicted. Had a dream about people offering cigarettes, indicating ongoing psychological struggle. - Plan: - Continue Chantix as prescribed, monitor for side effects, and adjust dosage if necessary. - Encourage the patient to utilize the [employer] resource for additional support. - Continue using non-nicotine vape and sugar-free menthol cough drops as substitutes. - Schedule a follow-up appointment in 2 weeks to assess progress and provide further support. If issues arise, the patient may return for an earlier appointment. - Obtain vitals during the next visit, as they have not been recorded recently. Anxiety - Assessment: Patient reports feeling nervous without a specific reason. - Plan: - Monitor patient's anxiety levels during the smoking cessation process. - Consider referral to a mental health professional if anxiety persists or worsens. 06/21/2024 Other 08/11/2024 Other referral to the local chapter or national office of the Alzheimer's Association ( ; http://www.alz.o rg), the Alzheimer's Disease Education and Referral Center (ADEAR) ( ; http://www.grace.n [place].gov/Alzheimer s/), Nicotine Dependence and Smoking Cessation - Assessment: Patient has reduced smoking from half a pack to 4 cigarettes a day. TMS was not effective for smoking cessation. Chantix was initiated, but patient still experiences cravings. No side effects from Chantix reported. Patient takes a few puffs and puts the cigarette back, not finishing them all at once. Patient is experiencing some irritability. - Plan: Continue Chantix as tolerated. Encourage patient to gradually reduce the number of cigarettes smoked per day. Consider alternative smoking cessation strategies if Chantix is not effective. Depression - Assessment: Stable at the time of the visit. - Plan: Continue current treatment regimen. Monitor for any changes in mood or depressive symptoms. Chronic Obstructive Pulmonary Disease (COPD) - Assessment: Severe COPD with continued smoking despite medical issues. - Plan: Encourage smoking cessation to prevent further exacerbation of COPD. Ensure patient is compliant with prescribed COPD medications. Schedule regular follow-ups with primary care physician for monitoring and management. Hypertension - Assessment: Underlying hypertension noted. - Plan: Monitor blood pressure regularly. Ensure patient is compliant with prescribed antihypertensive medications. Encourage lifestyle modifications, including a healthy diet, regular exercise, and smoking cessation. Cognitive Function - Assessment: No cognitive impairment observed. Functional status has been stable. - Plan: Continue to monitor cognitive function during future visits. Encourage patient to engage in activities that promote cognitive health, such as mental exercises and social interactions. Follow-up Care - Assessment: Patient is under care of her primary care physician for further treatment. - Plan: Coordinate care with primary care physician. Ensure proper communication of treatment plans and progress. Plan Of Treatment No Information Insurance Providers Payer Name Payer Address Payer Phone Subscriber Number Group Number Insured Name Patient Relationship to Insured Coverage Start Date Coverage End Date [facility] Medicare Replacement/ [employer] - [employer] [address] [address] [place] [phone] [id number] [employer]RBAN JANSEN Self - patient is the insured Medical (General) History Medical History History ICD Code Past Psychiatric History: Anxiety Disord er,Panic Disorder mild COPD mild emphysema diabetes diet controlled HTN HLD Surgical History Surgery Date(Month/Year) bowel resection 1998 gallbladder hysterectomy 2 c-sections tonsillectomy Hospitalization History Reason Date(Month/Year) bowel resection 1998 pneumonia 12/2023
--- OUTSIDE RECORDS SUMMARY | 2024-12-11 15:51 | XMS_ITS | Clinical Summary ---
Author Organization [facility] Address [address] [place] [id number] Care Team Providers Care Communication Equipment Repairer Name Role Phone Kirill Canas MD Primary Care Provider Social History Tobacco Use Types Packs/Day Years [...] age to complete this topic Care Teams Communication Equipment Repairer Relationship Specialty Start Date End Date Kirill Canas MD PCP - General 11/18/13
[2024-12-11 16:52] VITALS: BP 171/89; PULSE 84; RESP 18; O2SAT 94
[2024-12-11 16:56] LABS: Basophils Percent Auto 0.4 % (0.2-1.2); Eosinophils Absolute Auto 0.1 K/mm3 (0-0.3); Eosinophils Percent Auto 0.7 % (0-4.4); Hematocrit 45.3 % (37.0-47.0); Hemoglobin 14.7 g/dL (12.0-15.0); Immature Granulocyte Absolute 0.03 K/mm3 (0.00-0.031); Immature Granulocyte Percent A 0.3 % (0-0.5); Lymphocytes Absolute Auto 1.99 K/mm3 (0.9-3.2); Lymphocytes Percent Auto 19.3 % (18.3-44.2); Mean Corpuscular HGB Conc 32.5 g/dl (32-36); Mean Corpuscular Hemoglobin 31.3 pg (26-34); Mean Corpuscular Volume 96.4 fl (80-100); Mean Platelet Volume 9.9 fl (7.4-10.4); Monocytes Absolute Auto 0.7 K/mm3 (0.1-0.6); Monocytes Percent Auto 6.9 % (2.6-8.5); Neutrophils Absolute Auto 7.5 K/mm3 (1.3-6.7); Neutrophils Percent Auto 72.4 % (45.5-73.1); Platelet Count Result 219 k/mm3 (150-375); Red Cell Distribution Width 12.7 % (11.5-14.5); White Blood Count 10.3 K/mm3 (4.5-10.0)
[2024-12-11 17:09] LABS: Alanine Aminotransferase 49 U/L (6-35); Albumin Level 4.4 g/dL (3.5-5.1); Alkaline Phosphatase 94 U/L (38-126); Anion Gap 5 mmol/L (4-12); Aspartate Amino Transferase 31 U/L (14-36); Bilirubin,Total 0.5 mg/dL (0.2-1.3); Blood Urea Nitrogen 11 mg/dL (7-17); Calcium 9.3 mg/dL (8.4-10.2); Carbon Dioxide 36 mmol/L (22-30); Chloride 97 mmol/L (98-107); Estimated CRCL calculation 65 ml/min; Estimated Glomerular Filt Rate > 60; Glucose 93 mg/dL (65-110); Lactic Acid Reflex 1.1 mmol/L (0.7-2.0); Potassium 4.4 mmol/L (3.4-5.0); Sodium 138 mmol/L (137-145)
--- NOTE | 2024-12-11 17:18 | ED.GENADULT ---
HPI - General Adult General Chief complaint: Upper Respiratory Infection Stated complaint: UPPER RESP, ON 3L HOME O2 Time Seen by Provider: 12/11/24 15:37 Source: patient Mode of arrival: ambulatory Limitations: no limitations History of Present Illness HPI narrative: 69-year-old with a history of COPD on 2 L of home oxygen here with the complaints of shortness of breath and cough. Patient states that every year during this time she gets upper respiratory infection from seasonal allergies her doctor called in doxycycline which she started few days ago however she still has mild congestion and shortness of breath. She denies any fever or chills. She is worried that she could be having pneumonia. She denies any chest pain Onset (ago): day(s) (3) Relieving factors: none Exacerbating factors: none Associated symptoms: denies other symptoms Related Data Home Medications ?Medication ?Instructions ?Recorded ?Confirmed ?Last Taken ?Type mecobalamin (vitamin B12) 500 mcg 1,000 mcg PO DAILY 09/18/23 12/11/24 12/30/23 History chewable tablet Allergies Allergy/AdvReac Type Severity Reaction Status Date / Time azithromycin Allergy Unknown unsure Verified 12/11/24 15:06 cat dander Allergy Unknown rash Verified 12/11/24 15:06 ketorolac Allergy Unknown Hallucinati Verified 12/11/24 15:06 ng mold Allergy Unknown shortness Verified 12/11/24 15:06 of breath pantoprazole Allergy Unknown Unknown Verified 12/11/24 15:06 Sulfa (Sulfonamide Allergy Unknown Hives Verified 12/11/24 15:06 Antibiotics) Review of Systems Review of Systems: All systems reviewed & are unremarkable except as noted in HPI and below Constitutional: Constitutional: Reports no additional constitutional complaints Eyes: Eyes: Reports no additional eye complaints ENT: Reports system reviewed and no additional complaints, except as documented Cardiovascular: Cardiovascular: Reports no additional cardiovascular complaints Respiratory: Respiratory: Reports as per HPI Musculoskeletal: Musculoskeletal: Reports no additional musculoskeletal complaints Integumentary/Breasts: Skin/Breast: Reports system reviewed and no additional complaints, except as docu Neurologic: Reports system reviewed and no additional complaints, except as documented [facility] Past Medical History Medical History Community acquired pneumonia Elevated brain natriuretic peptide (BNP) level Acute hypoxic respiratory failure Right lower lobe pneumonia Depression Upper respiratory infection Encounter for vitamin deficiency screening Hearing Loss Trigger thumb of both hands Bilateral impacted cerumen History of smoking 25-50 pack years Impingement syndrome, shoulder, left Screening for breast cancer Chronic left shoulder pain Colon cancer screening Essential (primary) hypertension Gastroesophageal reflux disease Mixed hyperlipidemia Nicotine abuse Primary osteoarthritis involving multiple joints Type 2 diabetes mellitus without complication, without long-term current use of insulin Surgical History Surgical History History of bowel resection Family History Family History Sibling Family history of gout Family history of malignant neoplasm Hypertension High cholesterol Diabetes mellitus Grandparent Family history of tuberculosis Family history of chronic obstructive pulmonary disease Asthma Father Family history of malignant neoplasm Family history of lung cancer Family history of chronic obstructive pulmonary disease Mother Family history of chronic obstructive pulmonary disease Other Family history of congenital heart disease Family history of migraine headaches Social History Social History Smoking packs per day: 0.25 Smoking cigarettes per day: 5.0 Years smoked: 53 Smoking pack-years: 13.25 Smoking status: Current every day smoker Tobacco type: cigarettes Second hand tobacco smoke exposure: Yes Smoking end date: 09/08/12 Alcohol intake: never Alcohol use details: rarely Substance use: never Substance use type: does not use Do You Feel Safe in your Home?: Yes Lack of Transportation: No Lack of Food: Never True Current Housing: I Have Housing Concerned About Future Housing: No Difficulty Paying Gas/Electric Bills: No Difficulty Paying for Meds: No Currently Unemployed: No Education: Trade/Vocational Certificate Difficulty w/ Childcare or Family Care: No Spiritual care concerns: No Exam Narrative: GENERAL: Well-appearing, well-nourished, and in no acute distress. HEAD: Normocephalic, atraumatic. EYES: PERRLA and EOMI. ENT: Nares clear, no rhinorrhea or epistaxis. Mucous membranes moist. NECK: Supple. CHEST: Clear to auscultation. No respiratory distress. HEART: Regular rate and rhythm. No murmur heard. Normal peripheral pulses. ABDOMEN: Soft, nontender, nondistended, normal active bowel sounds. EXTREMITIES: Normal range of motion. No edema. SKIN: Warm, dry, no rash. NEURO: No focal deficits. Alert and oriented x3. PSYCH: Normal mood and affect. Course Course Emergency Course: Patient comfortably resting on the bed in no discomfort with SpO2 of 94% on 2l . Informed her about the lab work and chest x-ray findings. Recommended her to continue home medication. Vital Signs Vital signs: Vital Signs Temperature 36.3 C L 12/11/24 14:02 Pulse Rate 93 12/11/24 14:02 Respiratory Rate 20 12/11/24 14:02 Blood Pressure 204/108 H 12/11/24 14:02 Pulse Oximetry 92 12/11/24 14:02 Oxygen Delivery Nasal Cannula 12/11/24 14:02 Oxygen Flow Rate 2 12/11/24 14:02 Temperature 36.3 C L 12/11/24 14:02 Pulse Rate 84 12/11/24 16:52 Respiratory Rate 18 12/11/24 16:52 Blood Pressure 171/89 H 12/11/24 16:52 Pulse Oximetry 94 12/11/24 16:52 Oxygen Delivery Nasal Cannula 12/11/24 15:04 Oxygen Flow Rate 2 12/11/24 15:04 Medical Decision Making Differential Diagnosis Differential Diagnosis: COPD exacerbation, bronchitis, pneumonia Medical Records Medical records reviewed: Yes I reviewed the external patient's medical records. Vital Signs Vital Signs: Vital Signs Temperature 36.3 C L 12/11/24 14:02 Pulse Rate 93 12/11/24 14:02 Respiratory Rate 20 12/11/24 14:02 Blood Pressure 204/108 H 12/11/24 14:02 Pulse Oximetry 92 12/11/24 14:02 Oxygen Delivery Nasal Cannula 12/11/24 14:02 Oxygen Flow Rate 2 12/11/24 14:02 Temperature 36.3 C L 12/11/24 14:02 Pulse Rate 84 12/11/24 16:52 Respiratory Rate 18 12/11/24 16:52 Blood Pressure 171/89 H 12/11/24 16:52 Pulse Oximetry 94 12/11/24 16:52 Oxygen Delivery Nasal Cannula 12/11/24 15:04 Oxygen Flow Rate 2 12/11/24 15:04 Lab Data Lab results reviewed: Yes I reviewed the patient's lab results. 12/11/24 16:49 12/11/24 16:49 Labs: Lab Results 12/11/24 Range/Units 16:49 WBC 10.3 H (4.5-10.0) K/mm3 RBC 4.70 (4.2-5.4) M/mm3 Hgb 14.7 (12.0-15.0) g/dL Hct 45.3 (37.0-47.0) % MCV 96.4 (80-100) fl MCH 31.3 (26-34) pg MCHC 32.5 (32-36) g/dl RDW 12.7 (11.5-14.5) % Plt Count 219 (150-375) k/mm3 MPV 9.9 (7.4-10.4) fl Immature Gran % (Auto) 0.3 (0-0.5) % Neut % (Auto) 72.4 (45.5-73.1) % Lymph % (Auto) 19.3 (18.3-44.2) % Bartholomew % (Auto) 6.9 (2.6-8.5) % Eos % (Auto) 0.7 (0-4.4) % Baso % (Auto) 0.4 (0.2-1.2) % Lymph # (Auto) 1.99 (0.9-3.2) K/mm3 Bartholomew # (Auto) 0.7 H (0.1-0.6) K/mm3 Eos # (Auto) 0.1 (0-0.3) K/mm3 Baso # (Auto) 0.0 (0.0-0.1) K/mm3 Abs Immat Gran (auto) 0.03 (0.00-0.031) K/mm3 Absolute Neuts (auto) 7.5 H (1.3-6.7) K/mm3 Absolute Nucleated RBC 0.000 (0.0-0.012) K/mm3 Nucleated RBC % 0.0 (0.0-0.2) % Sodium 138 (137-145) mmol/L Potassium 4.4 (3.4-5.0) mmol/L Chloride 97 L (98-107) mmol/L Carbon Dioxide 36 H (22-30) mmol/L Anion Gap 5 (4-12) mmol/L BUN 11 D (7-17) mg/dL Creatinine 0.47 L (0.7-1.0) mg/dL Estim Creat Clear Calc 65 ml/min Estimated GFR > 60 (59 - ) Glucose 93 (65-110) mg/dL Lactic Acid 1.1 (0.7-2.0) mmol/L Calcium 9.3 (8.4-10.2) mg/dL Total Bilirubin 0.5 (0.2-1.3) mg/dL AST 31 (14-36) U/L ALT 49 H (6-35) U/L Alkaline Phosphatase 94 (38-126) U/L Total Protein 7.0 (6.3-8.2) g/dL Albumin 4.4 (3.5-5.1) g/dL Imaging Data Radiologist's impression: ITS Impressions Chest X-Ray 12/11/24 16:10 IMPRESSION: No acute cardiopulmonary process. Discharge Plan Discharge Clinical Impression: COPD (chronic obstructive pulmonary disease) Patient Disposition: Home, Self-Care Condition: Stable Instructions: COPD (Chronic Obstructive Pulmonary Disease) (DC) Additional Instructions: continue home medications, take steroids as prescribed. Patient Language: Swazi Prescriptions: No Action doxycycline hyclate 100 mg tablet 100 mg PO DAILY Qty: 14 1RF Rx Instructions: take 1 tablet daily albuterol sulfate 90 mcg/actuation aerosol powdr breath activated 2 inh inhalation Q4-6H PRN (Reason: shortness of breath) Qty: 1 0RF triamcinolone acetonide [Nasacort] 55 mcg aerosol,spray 2 spray intranasal DAILY Qty: 16.9 4RF Rx Instructions: administer into each nostril mecobalamin (vitamin B12) 500 mcg tablet,chewable 1,000 mcg PO DAILY doxycycline hyclate 100 mg capsule 100 mg PO DAILY Qty: 20 3RF Rx Instructions: take 1 capsule daily for 10 days citalopram 20 mg tablet See Rx Instructions .ROUTE .COMPLEX Qty: 90 3RF Dose Instruction: TAKE 1 TABLET BY MOUTH DAILY Rx Instructions: TAKE 1 TABLET BY MOUTH DAILY atorvastatin 20 mg tablet See Rx Instructions .ROUTE .COMPLEX Qty: 100 2RF Dose Instruction: TAKE 1 TABLET BY MOUTH DAILY Rx Instructions: TAKE 1 TABLET BY MOUTH DAILY buspirone 10 mg tablet 10 mg PO BID Qty: 200 2RF lisinopril 5 mg tablet See Rx Instructions .ROUTE .COMPLEX Qty: 60 5RF Dose Instruction: TAKE 1 TABLET BY MOUTH DAILY Rx Instructions: TAKE 1 TABLET BY MOUTH DAILY esomeprazole magnesium 40 mg capsule,delayed release(DR/EC) See Rx Instructions .ROUTE .COMPLEX Qty: 60 1RF Dose Instruction: TAKE 1 CAPSULE BY MOUTH DAILY Rx Instructions: TAKE 1 CAPSULE BY MOUTH DAILY alprazolam 0.5 mg tablet 0.5 mg PO Q8H Qty: 90 0RF Follow-up/Referrals: Angeline Steen APRN [Primary Care Provider] - Time of Disposition: 17:23
[2024-12-11 18:31] VITALS: BP 161/67; PULSE 84; RESP 15; O2SAT 94
== END 2024-12-11 18:33 | disposition home or self-care (01) ==
PROVIDERS: Emergency Provider Family Medicine; PCP Nurse Practitioner Family
DX: J44.9 Chronic obstructive pulmonary disease, unspecified (principal); I10 Essential (primary) hypertension; E78.2 Mixed hyperlipidemia; E11.9 Type 2 diabetes mellitus without complications; F17.210 Nicotine dependence, cigarettes, uncomplicated; Z99.81 Dependence on supplemental oxygen
CPT/HCPCS: 36415; 71045; 80053; 83605; 85025; 99283

== ENCOUNTER 2025-02-18 13:51 | Outpatient (CLI) | payer MEDICARE, SELFPAY ==
--- NOTE | ~2025-02-18 | CT_ITS ---
CT Scan of the Chest without Contrast: Clinical Indication: Lung cancer screening, nicotine dependence Technique: Contiguous sections were acquired throughout the chest without intravenous contrast. Dose reduction technique was used on this scan by utilizing automated exposure control and iterative recon struction technique. The dose-length product (DLP) was 40.16 mGy-cm. COMPARISON: 02/18/2024 Findings: There is no evidence of any significant mediastinal, hilar or axillary lymphadenopathy. The mediastin al soft tissues appear normal. There is no evidence of pleural or pericardial effusion. The lungs are clear. No pulmonary nodules or infiltrates are noted. Severe emphysema present. Images through the upper abdomen reveal severe atherosclerotic calcification at the suprarenal abdomi nal aorta with probable marked luminal narrowing (axial image 114).. Impression: Lung RADS 1-S: Negative. 12 month follow-up screening CT advised. Advanced emphysema. Probable significant luminal narrowing of the suprarenal abdominal aorta related to severe atheroscle rotic calcification. This is similar in appearance to prior exam. Reviewed, dictated and finalized at location . Impression: Lung RADS 1-S: Negative. 12 month follow-up screening CT advised. Advanced emphysema. Probable significant luminal narrowing of the suprarenal abdominal aorta relate d to severe atherosclerotic calcification. This is similar in appearance to sharri or exam.
== END 2025-02-18 13:52 | disposition home or self-care (01) ==
LOC: MICIMG 13:51
PROVIDERS: PCP Nurse Practitioner Family; Visit Provider Internal Medicine Pulmonary Disease
DX: Z12.2 Encounter for screening for malignant neoplasm of respiratory organs (principal); Z87.891 Personal history of nicotine dependence
CPT/HCPCS: 71271

== ENCOUNTER 2025-03-28 10:23 | Outpatient (CLI) | payer MEDICARE, SELFPAY ==
--- NOTE | ~2025-03-28 | MM_ITS ---
EXAMINATION: MM screening riana BI w kevin HISTORY: Screening TECHNIQUE: Craniocaudal and mediolateral oblique 3-D tomosynthesis images were obtained and synthetic 2-D images were generated. CAD analysis was submitted and interpreted. COMPARISON: Comparison to multiple prior studies sequentially, with oldest reviewed study dated 08/09. BREAST PARENCHYMAL COMPOSITION: There are scattered areas of fibroglandular density. FINDINGS: There is no evidence of suspicious mass, calcification, or architectural distortion to sug gest malignancy in either breast. IMPRESSION: 1. No mammographic evidence of malignancy. 2. Recommend routine screening mammography in one year. BI-RADS Category 1: Negative Reviewed, dictated and finalized at location B.
== END 2025-03-28 10:24 | disposition home or self-care (01) ==
PROVIDERS: PCP Nurse Practitioner Family; Visit Provider Nurse Practitioner Family
DX: Z12.31 Encounter for screening mammogram for malignant neoplasm of breast (principal)
CPT/HCPCS: 77063; 77067